=== PATIENT | male | born 1955 | race Caucasian/White ===

== ENCOUNTER 2017-02-26 13:59 | Emergency (ER) | payer BC ==
--- NOTE | 2017-02-26 16:43 | ED Physician Documentation ---
PD HPI CHEST PAIN - Stated complaint Stated Complaint: DIZZY/HIGH BP - Chief complaint Chief Complaint: Cardiac - History obtained from History obtained from: Patient - History of Present Illness Timing - onset: How many hours ago (2), Today Timing - onset during: Light activity (mowing lawn but did not feel strenuous.) Timing - duration: Hours Timing - details: Abrupt onset, Still present (less notable than at onset but still feels funny rhythm in chest.) Quality: Tightness Location: Substernal Improved by: No: Rest Associated symptoms: Feeling faint / dizzy (at onset of it), Palpitations. No: Shortness of air, Nausea, General Weakness Similar symptoms before: Has not had sx before Recently seen: Not recently seen Review of Systems Constitutional: denies: Fever, Chills Nose: denies: Rhinorrhea / runny nose, Congestion Throat: denies: Sore throat Respiratory: denies: Dyspnea, Cough, Wheezing : denies: Dysuria, Frequency Musculoskeletal: denies: Neck pain, Back pain Neurologic: denies: Focal weakness, Numbness, Altered mental status, Headache PD PAST MEDICAL HISTORY - Past Medical History Cardiovascular: Hypertension, Other (no prior atrial fib. has had PVCs or such for years, occasional. ) Respiratory: Emphysema, Pneumonia, Sleep apnea Endocrine/Autoimmune: None GI: Colon polyps, Chronic diarrhea, Other : None HEENT: Chronic vision loss, Chronic sinusitis Psych: None Musculoskeletal: None Derm: Psoriasis - Past Surgical History Past Surgical History: Yes General: Appendectomy, Colonoscopy HEENT: Other Derm: Skin cancer surgery - Present Medications Home Medications: Ambulatory Orders Medication Instructions Recorded Confirmed Lisinopril 20 mg PO DAILY 10/22/12 02/26/17 Metoprolol Tartrate [Lopressor] 50 mg PO DAILY #30 tablet 02/26/17 - Allergies Allergies/Adverse Reactions: Allergies Allergy/AdvReac Type Severity Reaction Status Date / Time Sulfa (Sulfonamide Allergy Rash Verified 02/26/17 14:26 Antibiotics) - Social History Does the pt smoke?: No Smoking Status: Never smoker Does the pt drink ETOH?: Yes ETOH Use: Other (occasional, not heavy use and no recent binge) Does the pt have substance abuse?: No - Immunizations Immunizations are current?: Yes PD ED PE NORMAL - Vitals Vital signs reviewed: Yes - General General: Alert and oriented X 3, No acute distress, Well developed/nourished - HEENT HEENT: Pharynx benign - Neck Neck: Supple, no meningeal sign, No adenopathy, Thyroid normal - Cardiac Cardiac: RRR, No murmur - Respiratory Respiratory: Clear bilaterally - Abdomen Abdomen: Soft, Non tender - Back Back: No CVA TTP - Derm Derm: Normal color, Warm and dry - Extremities Extremities: No deformity, No tenderness to palpate, No edema, No calf tenderness / cord - Neuro Neuro: Alert and oriented X 3, compliance professional 2-12 intact, No motor deficit, No sensory deficit, Normal speech - Psych Psych: Normal mood, Normal affect Results - Vitals Vitals: Vital Signs - 24 hr 02/26/17 02/26/17 02/26/17 14:21 16:58 17:29 Temperature 36.4 C L Heart Rate 75 121 H 100 Respiratory 16 18 18 Rate Blood Pressure 174/89 H 162/93 H 162/93 H O2 Saturation 98 96 98 02/26/17 02/26/17 02/26/17 17:37 17:39 17:44 Temperature Heart Rate 102 H 99 95 Respiratory 16 16 16 Rate Blood Pressure 145/101 H 123/99 H 135/85 H O2 Saturation 98 98 98 02/26/17 02/26/17 02/26/17 17:47 17:51 17:53 Temperature Heart Rate 118 H 104 H 98 Respiratory 16 16 Rate Blood Pressure 140/78 H 138/99 H O2 Saturation 99 99 97 02/26/17 02/26/17 02/26/17 17:59 18:04 18:05 Temperature Heart Rate 110 H 114 H 102 H Respiratory 18 18 18 Rate Blood Pressure 156/100 H 131/88 H 130/97 H O2 Saturation 99 99 98 02/26/17 02/26/17 02/26/17 18:10 18:25 18:30 Temperature Heart Rate 106 H 90 107 H Respiratory 16 16 16 Rate Blood Pressure 142/95 H 141/110 H 131/90 H O2 Saturation 98 99 99 02/26/17 02/26/17 02/26/17 18:45 18:49 18:55 Temperature Heart Rate 104 H 101 H 65 Respiratory 16 16 16 Rate Blood Pressure 131/90 H 132/84 H 116/88 H O2 Saturation 99 97 99 02/26/17 02/26/17 02/26/17 19:00 19:04 19:15 Temperature Heart Rate 64 65 64 Respiratory 14 14 15 Rate Blood Pressure 102/82 H 118/82 H 119/86 H O2 Saturation 97 99 99 02/26/17 19:48 Temperature 37.0 C Heart Rate 64 Respiratory 18 Rate Blood Pressure 123/83 H O2 Saturation 95 Oxygen O2 Source Room air - EKG (time done) 16:40 Rate: Rate (enter#) (121) Rhythm: Atrial fibrillation [place]: Normal QRS: Normal Ischemia: Normal ST segments. No: ST elevation c/w ischemia, ST depression, T wave inversion Compare to prior EKG: Old EKG unavailable 19:22 Rate: Rate (enter#) (63) Rhythm: NSR [place]oy: Normal Intervals: Normal [place] QRS: Normal Ischemia: Normal ST segments. No: ST elevation c/w ischemia, ST depression Compare to prior EKG: Changed from prior EKG - Labs Labs: Laboratory Tests 02/26/17 02/26/17 02/26/17 16:46 16:46 16:46 WBC 11.6 H RBC 4.90 Hgb 15.2 Hct 44.9 MCV 91.6 MCH 31.0 MCHC 33.8 RDW 13.5 Plt Count 229 MPV 9.4 Neut # 8.3 H Lymph # 2.4 [place] # 0.8 Eos # 0.1 Baso # 0.1 Absolute Nucleated RBC 0.00 Nucleated RBC % 0.0 Sodium 135 Potassium 3.7 Chloride 106 Carbon Dioxide 19 L Anion Gap 10.0 BUN 20 Creatinine 1.1 Estimated GFR (MDRD) 67 L Glucose 96 Calcium 9.0 Magnesium Total Bilirubin 0.3 AST 18 ALT 20 Alkaline Phosphatase 46 Troponin I < 0.04 B-Natriuretic Peptide Total Protein 7.3 Albumin 3.9 Globulin 3.4 Albumin/Globulin Ratio 1.1 Lipase 47 02/26/17 02/26/17 16:46 16:46 WBC RBC Hgb Hct MCV MCH MCHC RDW Plt Count MPV Neut # Lymph # [place] # Eos # Baso # Absolute Nucleated RBC Nucleated RBC % Sodium Potassium Chloride Carbon Dioxide Anion Gap BUN Creatinine Estimated GFR (MDRD) Glucose Calcium Magnesium 2.0 Total Bilirubin AST ALT Alkaline Phosphatase Troponin I B-Natriuretic Peptide 42 Total Protein Albumin Globulin Albumin/Globulin Ratio Lipase PD MEDICAL DECISION MAKING - ED course Complexity details: re-evaluated patient (had been looking at OBS idea, and talked about cardioversion as abrupt onset just today, but he prefers not cardioversion if possible. He did convert with Procan, so can do further workup outpatient, such as ECHO, consider stress testing, but he exercises regularly without CP/dyspnea. ), considered differential (heart rate slows with Metoprolol down to about 100. He converted to NSR about 900 mg into his Procainamide. Infusion stopped and he stays in NSR. Feeling better. ), d/w patient Departure - Departure Disposition: Home, Self Care Clinical Impression: Atrial fibrillation, new onset Condition: Stable Record reviewed to determine appropriate education?: Yes Instructions: Atrial Fibrillation Dc Follow-Up: Niles Gu MD [Primary Care Provider] - Prescriptions: Metoprolol Tartrate [Lopressor] 50 mg PO DAILY #30 tablet Comments: Drink lots of fluids. Hold your lisinopril and start metoprolol 50 mg daily instead to help control heart rate as well as blood pressure. Follow-up with Dr. Gu later this week, call for an appointment. They likely will want to schedule an ultrasound of your heart called an echocardiogram to evaluate the structure of it. This can be done outpatient. Return if recurrent symptoms. Discharge Date/Time: 02/26/17 19:57
[2017-02-26 16:56] LABS: BASOPHILS # (AUTO) 0.1 10^3/uL (0.0-0.1); BASOPHILS % (AUTO) 0.6 %; EOSINOPHILS # (AUTO) 0.1 10^3/uL (0.0-0.7); EOSINOPHILS % (AUTO) 1.1 %; HCT - HEMATOCRIT 44.9 % (42.0-52.0); HGB - HEMOGLOBIN 15.2 g/dL (14.0-18.0); LYMPHOCYTES # (AUTO) 2.4 10^3/uL (1.5-3.5); LYMPHOCYTES % (AUTO) 20.4 %; MEAN CORPUSCULAR HGB CONC 33.8 g/dL (32.0-36.0); MEAN CORPUSCULAR VOLUME 91.6 fL (80.0-94.0); MEAN PLATELET VOLUME 9.4 fL (7.4-11.4); MONOCYTES # (AUTO) 0.8 10^3/uL (0.0-1.0); MONOCYTES % (AUTO) 6.7 %; NEUTROPHILS # (AUTO) 8.3 10^3/uL (1.5-6.6); NEUTROPHILS % (AUTO) 71.2 %; RED CELL DISTRIBUTION WIDTH 13.5 % (12.0-15.0); UNCORRECTED WHITE BLOOD COUNT 11.6 x10^3/uL; WHITE BLOOD COUNT 11.6 x10^3/uL (4.8-10.8)
[2017-02-26 17:08] LABS: ALBUMIN/GLOBULIN RATIO 1.1 (1.0-2.2); BILIRUBIN,TOTAL 0.3 mg/dL (0.2-1.0); CREATININE 1.1 mg/dL (0.6-1.2); POTASSIUM 3.7 mmol/L (3.5-5.0); TOTAL PROTEIN 7.3 g/dL (6.7-8.2)
[2017-02-26] MEDS ORDERED: METOPROLOL 5 MG/5 ML VIAL IVP STA ×3 (17:11→18:31)
[2017-02-26] MEDS ORDERED: METOPROLOL 5 MG/5 ML VIAL IVP ONE ×3 (17:33→18:48)
[2017-02-26] MEDS ORDERED: SODIUM CHLORIDE FLUSH 0.9% 10 ML SYRINGE IVP ONE (17:54)
[2017-02-26] MEDS ORDERED: PROCAINAMIDE 1,000 MG/10 ML SYRINGE IV STA (18:28)
[2017-02-26] MEDS ORDERED: PROCAINAMIDE 1,000 MG/10 ML SYRINGE ONE (18:49)
[2017-02-26 19:51] VITALS: BP 123/83
== END 2017-02-26 19:57 | disposition home or self-care (01) ==
LOC: ED 13:59
DX: I48.91 Unspecified atrial fibrillation (principal); I44.4 Left anterior fascicular block; R94.31 Abnormal electrocardiogram [ECG] [EKG]; I10 Essential (primary) hypertension; Z86.010 Personal history of colon polyps
CPT/HCPCS: 36415; 80053; 83690; 83735; 83880; 84484; 85025; 93005; 96374; 96375; 96376; 99284; 99285; J2690

== ENCOUNTER 2017-03-01 12:53 | Outpatient (CLI) | payer BC | END 2017-03-01 12:54 | disposition home or self-care (01) | LOC: DI 12:53 | PROVIDERS: ATTEND Family Medicine | DX: I48.91 Unspecified atrial fibrillation (principal); I51.7 Cardiomegaly | CPT/HCPCS: 93306 ==

== ENCOUNTER 2017-03-27 13:32 | Outpatient (CLI) | payer BC | END 2017-03-27 13:33 | disposition home or self-care (01) | LOC: SC 13:32 | PROVIDERS: ATTEND Internal Medicine Pulmonary Disease | DX: G47.30 Sleep apnea, unspecified (principal); G47.8 Other sleep disorders; R06.83 Snoring | CPT/HCPCS: 99203; 99212 ==

== ENCOUNTER 2017-05-28 11:13 | Emergency (ER) | payer BC ==
[2017-05-28 11:44] LABS: BASOPHILS # (AUTO) 0.1 10^3/uL (0.0-0.1); BASOPHILS % (AUTO) 0.6 %; EOSINOPHILS # (AUTO) 0.2 10^3/uL (0.0-0.7); EOSINOPHILS % (AUTO) 1.7 %; HGB - HEMOGLOBIN 15.5 g/dL (14.0-18.0); LYMPHOCYTES # (AUTO) 1.8 10^3/uL (1.5-3.5); LYMPHOCYTES % (AUTO) 17.9 %; MEAN CORPUSCULAR HEMOGLOBIN 31.4 pg (27.0-31.0); MEAN CORPUSCULAR HGB CONC 34.2 g/dL (32.0-36.0); MEAN CORPUSCULAR VOLUME 91.8 fL (80.0-94.0); MEAN PLATELET VOLUME 9.4 fL (7.4-11.4); MONOCYTES # (AUTO) 0.7 10^3/uL (0.0-1.0); MONOCYTES % (AUTO) 7.1 %; NEUTROPHILS # (AUTO) 7.5 10^3/uL (1.5-6.6); NEUTROPHILS % (AUTO) 72.7 %; PLT - PLATELET COUNT 226 10^3/uL (130-450); RED BLOOD COUNT 4.94 10^6/uL (4.70-6.10); RED CELL DISTRIBUTION WIDTH 13.4 % (12.0-15.0); WHITE BLOOD COUNT 10.3 x10^3/uL (4.8-10.8)
[2017-05-28 11:57] LABS: ALBUMIN/GLOBULIN RATIO 1.2 (1.0-2.2); BILIRUBIN,TOTAL 0.6 mg/dL (0.2-1.0); CALCIUM 9.3 mg/dL (8.5-10.3); CREATININE 1.1 mg/dL (0.6-1.2); TOTAL PROTEIN 7.3 g/dL (6.7-8.2)
[2017-05-28] MEDS ORDERED: SODIUM CHLORIDE 0.9% 1,000 ML IV ONE (12:56)
--- NOTE | 2017-05-28 12:59 | ED Physician Documentation ---
History of Present Illness - Stated complaint Stated Complaint: RAPID HR - Chief complaint Chief Complaint: Cardiac - History obtained from History obtained from: Patient - History of Present Illness Timing: Today Pain level max: 0 Pain level now: 0 Improved by: nothing Worsened by: nothing - Additonal information Additional information: Patient is a 62-year-old male who presents to the emergency department with rapid heart rate today. This is found on his heart rate machine at home. Does have a history of atrial fibrillation. Had not taken his metoprolol yet this morning, but did take it just prior to arrival in the emergency department. He denies any chest pain, shortness of breath. He is also on Adderall for ADD. He took an aspirin prior to arrival today. He feels slightly lightheaded. States decreased fluid intake recently and is changing his diet to try to lose weight. Review of Systems Ten Systems: 10 systems reviewed and negative Constitutional: denies: Fever, Chills Ears: denies: Ear pain Nose: denies: Rhinorrhea / runny nose, Congestion Throat: denies: Sore throat Cardiac: reports: Palpitations. denies: Chest pain / pressure Respiratory: denies: Dyspnea, Cough, Wheezing GI: denies: Abdominal Pain, Nausea, Vomiting, Diarrhea : denies: Dysuria Skin: denies: Rash Musculoskeletal: denies: Neck pain, Back pain Neurologic: denies: Headache PD PAST MEDICAL HISTORY - Past Medical History Cardiovascular: Hypertension, Other Respiratory: Emphysema, Pneumonia, Sleep apnea Endocrine/Autoimmune: None GI: Colon polyps, Chronic diarrhea, Other : None HEENT: Chronic vision loss, Chronic sinusitis Psych: None Musculoskeletal: None Derm: Psoriasis - Past Surgical History Past Surgical History: Yes General: Appendectomy, Colonoscopy HEENT: Other Derm: Skin cancer surgery - Present Medications Home Medications: Ambulatory Orders Medication Instructions Recorded Confirmed Lisinopril 20 mg PO DAILY 10/22/12 05/28/17 Metoprolol Tartrate [Lopressor] 50 mg PO DAILY #30 tablet 02/26/17 05/28/17 Aspirin 325 mg PO DAILY 05/28/17 05/28/17 Dextroamphetamine/Amphetamine 20 mg PO DAILY 05/28/17 05/28/17 [Adderall 20 mg Tablet] - Allergies Allergies/Adverse Reactions: Allergies Allergy/AdvReac Type Severity Reaction Status Date / Time Sulfa (Sulfonamide Allergy Rash Verified 02/26/17 14:26 Antibiotics) - Social History Does the pt smoke?: No Smoking Status: Never smoker Does the pt drink ETOH?: Yes Does the pt have substance abuse?: No - Immunizations Immunizations are current?: Yes - POLST Patient has POLST: No PD ED PE NORMAL - Vitals Vital signs reviewed: Yes - General General: Alert and oriented X 3, No acute distress, Well developed/nourished - HEENT HEENT: PERRL, Moist mucous membranes - Neck Neck: Supple, no meningeal sign - Cardiac Cardiac: Other (irregular) - Respiratory Respiratory: No respiratory distress, Clear bilaterally - Abdomen Abdomen: Soft, Non tender, Non distended - Derm Derm: Warm and dry, No rash - Extremities Extremities: No edema, No calf tenderness / cord - Neuro Neuro: Alert and oriented X 3 - Psych Psych: Normal mood, Normal affect Results - Vitals Vitals: Vital Signs - 24 hr 05/28/17 05/28/17 05/28/17 11:27 13:10 13:36 Temperature 36.5 C Heart Rate 72 98 94 Respiratory 17 12 17 Rate Blood Pressure 149/81 H 104/61 108/76 O2 Saturation 100 98 100 05/28/17 05/28/17 13:38 14:23 Temperature 36.3 C L Heart Rate 92 Respiratory 16 Rate Blood Pressure 104/70 O2 Saturation 97 Oxygen O2 Source Room air - EKG (time done) 1131 Rate: Rate (enter#) (127) Rhythm: Atrial fibrillation (with RVR), Other (PVC) [place]: LAD Ischemia: Non specific changes 1419 Rate: Rate (enter#) (66) Rhythm: NSR, Other (PVC) [place]: LAD, Anterior hemiblock (LAFB) Intervals: Normal [place] QRS: Normal Ischemia: Normal ST segments Computer interpretation: Agree with computer - Labs Labs: Laboratory Tests 05/28/17 05/28/17 05/28/17 11:35 11:35 11:35 WBC 10.3 RBC 4.94 Hgb 15.5 Hct 45.3 MCV 91.8 MCH 31.4 H MCHC 34.2 RDW 13.4 Plt Count 226 MPV 9.4 Neut # 7.5 H Lymph # 1.8 [place] # 0.7 Eos # 0.2 Baso # 0.1 Absolute Nucleated RBC 0.01 Nucleated RBC % 0.1 Sodium 135 Potassium 3.5 Chloride 103 Carbon Dioxide 17 L Anion Gap 15.0 H BUN 25 H Creatinine 1.1 Estimated GFR (MDRD) 67 L Glucose 104 H Calcium 9.3 Phosphorus Magnesium Total Bilirubin 0.6 AST 22 ALT 23 Alkaline Phosphatase 50 Troponin I < 0.04 Total Protein 7.3 Albumin 4.0 Globulin 3.3 Albumin/Globulin Ratio 1.2 Lipase 43 05/28/17 11:35 WBC RBC Hgb Hct MCV MCH MCHC RDW Plt Count MPV Neut # Lymph # [place] # Eos # Baso # Absolute Nucleated RBC Nucleated RBC % Sodium Potassium Chloride Carbon Dioxide Anion Gap BUN Creatinine Estimated GFR (MDRD) Glucose Calcium Phosphorus 4.2 Magnesium 1.9 Total Bilirubin AST ALT Alkaline Phosphatase Troponin I Total Protein Albumin Globulin Albumin/Globulin Ratio Lipase - Rads (name of study) cxr Radiology: Prelim report reviewed, EMP read contemporaneously, See rad report ( Normal single view chest. ) PD MEDICAL DECISION MAKING - ED course Complexity details: reviewed results, re-evaluated patient, considered differential, d/w patient ED course: Patient is a 62-year-old male who presents to the emergency department complaining of rapid heart rate. He is found to be in atrial fibrillation with rapid ventricular response. Given Cardizem, heart rate slowed and then he converted spontaneously to normal sinus rhythm. He also appeared dehydrated clinically, therefore given IV fluids. Feels better. We will have him follow- up with his doctor for further evaluation and care. Patient counseled regarding signs and symptoms for which I believe and urgent re-evaluation would be necessary. Patient with good understanding of and agreement to plan and is comfortable going home at this time This document was made in part using voice recognition software. While efforts are made to proofread this document, sound alike and grammatical errors may occur. Departure - Departure Disposition: 01 Home, Self Care Clinical Impression: Dehydration Atrial fibrillation Qualifiers: Atrial fibrillation type: paroxysmal Qualified Code(s): I48.0 - Paroxysmal atrial fibrillation Condition: Good Instructions: ED Afib Follow-Up: Niles Gu MD [Primary Care Provider] - Within 1 week Comments: Continue your medications at home. Increase your water intake. Return if you worsen. Talk to your doctor about changing from adderall as this may contribute to your afib. Discharge Date/Time: 05/28/17 14:23
[2017-05-28] MEDS ORDERED: diltiaZEM INJ 5 MG/ML VIAL IVP STA (13:05)
--- NOTE | 2017-05-28 13:34 | XRAY Preliminary Report ---
Exam: XR CHEST 1 VIEW X-RAY IMPRESSION: Normal single view chest. [facility] SITE ID: [id number]
[2017-05-28 13:35] LABS: MAGNESIUM 1.9 mg/dL (1.7-2.8); PHOSPHORUS 4.2 mg/dL (2.5-4.6)
[2017-05-28 13:39] VITALS: BP 104/70
--- NOTE | 2017-05-28 14:04 | XRAY Report ---
EXAM: CHEST RADIOGRAPHY EXAM DATE: 05/28/2017 01:24 PM. CLINICAL HISTORY: Atrial fibrillation, RVR. COMPARISON: 04/13/2014. TECHNIQUE: 1 view. FINDINGS: Lungs/Pleura: No focal opacities evident. No pleural effusion. No pneumothorax. Mediastinum: Within exam limitations, the cardiomediastinal contour is normal. Other: None. IMPRESSION: Normal single view chest. [facility] Referring Provider Line: [phone] SITE ID: [id number]
== END 2017-05-28 14:23 | disposition home or self-care (01) ==
LOC: ED 11:13
DX: I48.0 Paroxysmal atrial fibrillation (principal); I49.3 Ventricular premature depolarization; I44.4 Left anterior fascicular block; E86.0 Dehydration; I10 Essential (primary) hypertension; F90.9 Attention-deficit hyperactivity disorder, unspecified type; Z79.82 Long term (current) use of aspirin
CPT/HCPCS: 36415; 71045; 80053; 83690; 83735; 84100; 84484; 85025; 93005; 96361; 96374; 99284; 99285

== ENCOUNTER 2017-06-13 14:19 | Outpatient (CLI) | payer BC | END 2017-06-13 14:20 | disposition home or self-care (01) | LOC: SC 14:19 | PROVIDERS: ATTEND Nurse Practitioner Family | DX: G47.33 Obstructive sleep apnea (adult) (pediatric) (principal) | CPT/HCPCS: 99212; 99214 ==

== ENCOUNTER 2017-07-20 01:39 | Emergency (ER) | payer BC ==
[2017-07-20] MEDS ORDERED: METOPROLOL 5 MG/5 ML VIAL IVP STA (01:48)
[2017-07-20] MEDS ORDERED: SODIUM CHLORIDE 0.9% 1,000 ML IV ONE (02:07)
[2017-07-20 02:14] LABS: MUDS CUTOFF CONCENTRATIONS CUTOFF CONC BELOW:
[2017-07-20 02:27] LABS: AMPHETAMINE SCREEN,URINE NEGATIVE (NEGATIVE); BENZODIAZEPINES SCREEN, URINE NEGATIVE (NEGATIVE); COCAINE SCREEN URINE NEGATIVE (NEGATIVE); METHADONE SCREEN, URINE NEGATIVE (NEGATIVE); METHAMPHETAMINES SCREEN, URINE NEGATIVE (NEGATIVE); OPIATE SCREEN, URINE NEGATIVE (NEGATIVE); OXYCODONE SCREEN, URINE NEGATIVE (NEGATIVE); PROPOXYPHENE SCREEN, URINE NEGATIVE (NEGATIVE); TRICYCLIC ANTIDEPRESSANT,URINE NEGATIVE (NEGATIVE)
[2017-07-20 02:31] LABS: BASOPHILS # (AUTO) 0.2 10^3/uL (0.0-0.1); BASOPHILS % (AUTO) 1.6 %; EOSINOPHILS # (AUTO) 0.5 10^3/uL (0.0-0.7); EOSINOPHILS % (AUTO) 4.6 %; HGB - HEMOGLOBIN 14.2 g/dL (14.0-18.0); LYMPHOCYTES # (AUTO) 2.6 10^3/uL (1.5-3.5); LYMPHOCYTES % (AUTO) 24.5 %; MEAN CORPUSCULAR HEMOGLOBIN 30.4 pg (27.0-31.0); MEAN CORPUSCULAR HGB CONC 33.1 g/dL (32.0-36.0); MEAN CORPUSCULAR VOLUME 91.7 fL (80.0-94.0); MONOCYTES # (AUTO) 0.5 10^3/uL (0.0-1.0); MONOCYTES % (AUTO) 4.5 %; NEUTROPHILS % (AUTO) 64.8 %; PLT - PLATELET COUNT 217 10^3/uL (130-450); RED BLOOD COUNT 4.68 10^6/uL (4.70-6.10); RED CELL DISTRIBUTION WIDTH 13.9 % (12.0-15.0); WHITE BLOOD COUNT 10.8 x10^3/uL (4.8-10.8)
[2017-07-20 02:39] LABS: ALBUMIN 3.7 g/dL (3.2-5.5); ALBUMIN/GLOBULIN RATIO 1.1 (1.0-2.2); ALKALINE PHOSPHATASE 46 IU/L (42-121); ALT ALANINE AMINOTRANSFERASE 19 IU/L (10-60); AST ASPARTATE AMINOTRANSFERASE 23 IU/L (10-42); BILIRUBIN,TOTAL 0.3 mg/dL (0.2-1.0); BUN - BLOOD UREA NITROGEN 22 mg/dL (6-20); CALCIUM 8.8 mg/dL (8.5-10.3); CARBON DIOXIDE - CO2 22 mmol/L (21-32); CHLORIDE 107 mmol/L (101-111); GFR - MDRD 75 (>89); GLUCOSE 116 mg/dL (70-100); LIPASE 19 U/L (22-51); MAGNESIUM 2.3 mg/dL (1.7-2.8); PHOSPHORUS 4.4 mg/dL (2.5-4.6); SODIUM 136 mmol/L (135-145)
--- NOTE | 2017-07-20 02:39 | ED Physician Documentation ---
PD HPI CHEST PAIN - Stated complaint Stated Complaint: POSS AFIB - Chief complaint Chief Complaint: Cardiac - History obtained from History obtained from: Patient - History of Present Illness Timing - onset: Today Timing - onset during: Rest Timing - details: Abrupt onset Quality: No: Pressure, Tightness Associated symptoms: Palpitations Similar symptoms before: Work up / diagnostics, Treatment Recently seen: Not recently seen - Additional information Additional information: Patient is a 62 year old male with a history of a fib on metoprolol who is presenting to the emergency department for palpitations. Patient states that the symptoms started tonight and he felt like he might be in a fib again. Patient states that he might have missed a few doses of his medication and did have black tea with dinner and does partake in cannabis. Review of Systems Constitutional: denies: Fever, Chills Eyes: reports: Reviewed and negative Ears: reports: Reviewed and negative Nose: reports: Reviewed and negative Throat: reports: Reviewed and negative Cardiac: reports: Palpitations. denies: Chest pain / pressure Respiratory: denies: Dyspnea, Cough, Wheezing GI: denies: Nausea, Vomiting : denies: Dysuria, Frequency, Hesitancy Skin: denies: Rash, Lesions Musculoskeletal: reports: Reviewed and negative Neurologic: denies: Near syncope, Syncope Psychiatric: reports: Reviewed and negative Endocrine: reports: Reviewed and negative Immunocompromised: denies: Immunocompromised PD PAST MEDICAL HISTORY - Past Medical History Cardiovascular: Hypertension, Other Respiratory: COPD, Pneumonia, Sleep apnea Endocrine/Autoimmune: None GI: Colon polyps, Chronic diarrhea, Other : None HEENT: Chronic vision loss, Chronic sinusitis Psych: None Musculoskeletal: None Derm: Psoriasis - Past Surgical History Past Surgical History: Yes General: Appendectomy, Colonoscopy HEENT: Other Derm: Skin cancer surgery - Present Medications Home Medications: Ambulatory Orders Medication Instructions Recorded Confirmed Metoprolol Tartrate [Lopressor] 50 mg PO DAILY #30 tablet 02/26/17 07/20/17 Aspirin 325 mg PO DAILY 05/28/17 07/20/17 Dextroamphetamine/Amphetamine 20 mg PO DAILY 05/28/17 07/20/17 [Adderall 20 mg Tablet] - Allergies Allergies/Adverse Reactions: Allergies Allergy/AdvReac Type Severity Reaction Status Date / Time Sulfa (Sulfonamide Allergy Rash Verified 07/20/17 01:50 Antibiotics) - Social History Does the pt smoke?: No Smoking Status: Never smoker Does the pt drink ETOH?: Yes Does the pt have substance abuse?: Yes Substance Use and Type: Marijuana - Immunizations Immunizations are current?: Yes - POLST Patient has POLST: No PD ED PE NORMAL - Vitals Vital signs reviewed: Yes - General General: Alert and oriented X 3 - HEENT HEENT: Atraumatic, PERRL - Neck Neck: Supple, no meningeal sign, No JVD - Respiratory Respiratory: No respiratory distress - Abdomen Abdomen: Soft, Non tender, Non distended - Derm Derm: Normal color, No rash - Extremities Extremities: No deformity, No calf tenderness / cord - Neuro Neuro: Alert and oriented X 3, No motor deficit, No sensory deficit, Normal speech - Psych Psych: Normal mood PD ED PE EXPANDED - General General: Alert, Anxious - HEENT HEENT: Dry mucous membranes - Cardiac Cardiac: Irregularly irregular, Radial strong equal Results - Vitals Vitals: Vital Signs - 24 hr 07/20/17 07/20/17 07/20/17 01:46 02:42 02:43 Temperature 36.6 C Heart Rate 102 H 92 Respiratory 16 16 Rate Blood Pressure 131/70 H 122/64 111/71 O2 Saturation 95 96 Oxygen O2 Source Room air - EKG (time done) 0144 Rate: Rate (enter#) (99) Rhythm: NSR Ischemia: ST depression, Other (multiple pvcs) Compare to prior EKG: Unchanged from prior EKG - Labs Labs: Laboratory Tests 07/20/17 07/20/17 07/20/17 01:50 01:50 01:50 WBC 10.8 RBC 4.68 L Hgb 14.2 Hct 42.9 MCV 91.7 MCH 30.4 MCHC 33.1 RDW 13.9 Plt Count 217 MPV 10.0 Neut # 7.0 H Lymph # 2.6 [place] # 0.5 Eos # 0.5 Baso # 0.2 H Absolute Nucleated RBC 0.00 Nucleated RBC % 0.0 Sodium 136 Potassium 3.4 L Chloride 107 Carbon Dioxide 22 Anion Gap 7.0 BUN 22 H Creatinine 1.0 Estimated GFR (MDRD) 75 L Glucose 116 H Calcium 8.8 Phosphorus 4.4 Magnesium 2.3 Total Bilirubin 0.3 AST 23 ALT 19 Alkaline Phosphatase 46 Troponin I < 0.04 Total Protein 7.0 Albumin 3.7 Globulin 3.3 Albumin/Globulin Ratio 1.1 Lipase 19 L Urine Opiates Screen Ur Oxycodone Screen Urine Methadone Screen Ur Propoxyphene Screen Ur Barbiturates Screen Ur Tricyclics Screen Ur Phencyclidine Scrn Ur Amphetamine Screen U Methamphetamines Scrn U Benzodiazepines Scrn Urine Cocaine Screen U Cannabinoids Screen Ethyl Alcohol < 5.0 07/20/17 01:54 WBC RBC Hgb Hct MCV MCH MCHC RDW Plt Count MPV Neut # Lymph # [place] # Eos # Baso # Absolute Nucleated RBC Nucleated RBC % Sodium Potassium Chloride Carbon Dioxide Anion Gap BUN Creatinine Estimated GFR (MDRD) Glucose Calcium Phosphorus Magnesium Total Bilirubin AST ALT Alkaline Phosphatase Troponin I Total Protein Albumin Globulin Albumin/Globulin Ratio Lipase Urine Opiates Screen NEGATIVE Ur Oxycodone Screen NEGATIVE Urine Methadone Screen NEGATIVE Ur Propoxyphene Screen NEGATIVE Ur Barbiturates Screen NEGATIVE Ur Tricyclics Screen NEGATIVE Ur Phencyclidine Scrn NEGATIVE Ur Amphetamine Screen NEGATIVE U Methamphetamines Scrn NEGATIVE U Benzodiazepines Scrn NEGATIVE Urine Cocaine Screen NEGATIVE U Cannabinoids Screen POSITIVE H Ethyl Alcohol PD MEDICAL DECISION MAKING - ED course Complexity details: reviewed old records, reviewed results, re-evaluated patient , considered differential, d/w patient ED course: Patient was seen and examined at bedside. ekg was performed which showed multiple pvs. IV access was gained, labs were drawn. patient was placed on a monitor. Patient was treated with IV fluids and lopressor 5mg. Patient's pvcs improved dramatically and they were now only occasionally. Patient's other diagnostics were within normal limits aside from borderline potassium which was replaced. Patient was given detailed discharge and follow up instructions. Patient required no further work up and was stable for discharge with outpatient follow up. Departure - Departure Disposition: 01 Home, Self Care Clinical Impression: PVC (premature ventricular contraction) Condition: Good Instructions: ED Palpitations Follow-Up: Niles Gu MD [Primary Care Provider] - Comments: Your symptoms today are being caused by multiple premature ventricular contractions which was likely secondary to missing your medications. It is important that you take your medications as prescribed. If your symptoms return or become more frequent you will need to follow up with your doctor for possible holter monitor and/or medication adjustment. You may return to the emergency department at any time for new, worsening or uncontrollable symptoms.
[2017-07-20] MEDS ORDERED: POTASSIUM CHLORIDE 20 MEQ TABLET PO STA (02:40)
[2017-07-20 03:30] VITALS: BP 134/76
== END 2017-07-20 03:30 | disposition home or self-care (01) ==
LOC: ED 01:39
DX: I49.3 Ventricular premature depolarization (principal); Z79.899 Other long term (current) drug therapy; I10 Essential (primary) hypertension
CPT/HCPCS: 36415; 80053; 80306; 80320; 83690; 83735; 84100; 84443; 84484; 85025; 93005; 96361; 96374; 99284; A9270

== ENCOUNTER 2017-08-30 11:15 | Outpatient (CLI) | payer BC | END 2017-08-30 11:16 | disposition home or self-care (01) | LOC: SC 11:15 | PROVIDERS: ATTEND Nurse Practitioner Family | DX: G47.33 Obstructive sleep apnea (adult) (pediatric) (principal) | CPT/HCPCS: 99212; 99215 ==

== ENCOUNTER 2017-09-13 10:13 | Emergency (ER) | payer BC ==
[2017-09-13] MEDS ORDERED: IOPAMIDOL-300 100 ML VIAL IVP ONE ×2 (10:14)
--- NOTE | 2017-09-13 10:30 | ED Physician Documentation ---
PD HPI FOCAL NEURO - Stated complaint Stated Complaint: LT SIDE FACIAL NUMBNESS - Chief complaint Chief Complaint: Heent - History obtained from History obtained from: Patient - History of Present Illness Timing - onset: Today (awoke with it this morning.) Timing - duration: Hours (at least 3 hours, up to about 12 hours (when he went to bed last night).) Timing - details: Abrupt onset Time of symptom onset unknown: Time of onset unknown Severity of deficit: Moderate Weakness: Face, Left. No: Arm, Leg Numbness: No: Face, Arm, Leg Associated symptoms: No: Headache, Nausea / vomiting, Fall, Head injury Review of Systems Constitutional: denies: Fever, Chills, Myalgias Eyes: denies: Loss of vision, Decreased vision Ears: denies: Ear pain, Drainage/discharge Nose: denies: Rhinorrhea / runny nose, Congestion Throat: denies: Sore throat Cardiac: denies: Chest pain / pressure, Palpitations Respiratory: denies: Dyspnea, Cough GI: denies: Abdominal Pain, Nausea, Vomiting, Diarrhea Skin: denies: Rash, Lesions Musculoskeletal: denies: Neck pain, Back pain Neurologic: denies: Altered mental status, Headache, Head injury PD PAST MEDICAL HISTORY - Past Medical History Past Medical History: Yes Cardiovascular: Hypertension, Other Respiratory: COPD, Pneumonia, Sleep apnea Endocrine/Autoimmune: None GI: Colon polyps, Chronic diarrhea, Other : None HEENT: Chronic vision loss, Chronic sinusitis Psych: None Musculoskeletal: None Derm: Psoriasis - Past Surgical History Past Surgical History: Yes General: Appendectomy, Colonoscopy HEENT: Other Derm: Skin cancer surgery - Present Medications Home Medications: Ambulatory Orders Medication Instructions Recorded Confirmed Acyclovir 400 mg PO 5XD #25 tablet 09/13/17 Dexamethasone [Decadron] 4 mg PO DAILY #5 tablet 09/13/17 Metoprolol Tartrate [Lopressor] 50 mg PO BID 09/13/17 09/13/17 Rivaroxaban [Xarelto] 09/13/17 Tamsulosin HCl [Flomax] 09/13/17 - Allergies Allergies/Adverse Reactions: Allergies Allergy/AdvReac Type Severity Reaction Status Date / Time Sulfa (Sulfonamide Allergy Rash Verified 07/20/17 01:50 Antibiotics) - Social History Does the pt smoke?: No Smoking Status: Never smoker Does the pt drink ETOH?: Yes Does the pt have substance abuse?: Yes - Immunizations Immunizations are current?: Yes - POLST Patient has POLST: No PD ED PE NORMAL - Vitals Vital signs reviewed: Yes - General General: Alert and oriented X 3, No acute distress, Well developed/nourished - HEENT HEENT: Ears normal, Pharynx benign, Other (obvious weakness/droop of left face, unable to puff cheeks symmetrically. Unable to fully close his left eye. Forehead seems to have symmetric movement; lower part of face is affected. ) - Neck Neck: Supple, no meningeal sign, No adenopathy, No JVD, No bruit - Cardiac Cardiac: RRR, No murmur - Respiratory Respiratory: No respiratory distress, Clear bilaterally - Abdomen Abdomen: Soft, Non tender - Back Back: No CVA TTP - Derm Derm: Normal color, Warm and dry, No rash - Extremities Extremities: No tenderness to palpate, Normal ROM s pain, No edema, No calf tenderness / cord - Neuro Neuro: Alert and oriented X 3, No sensory deficit, Normal speech, Other (left face with moderate weakness.). No: philatelic consultant 2-12 intact (only left face weakness noted; rest is normal. ) Eye Opening: Spontaneous Motor: Obeys Commands Verbal: Oriented GCS Score: 15 NIHSS - Level of Consciousness Level of consciousness: (0) Alert, Keenly responsive LOC Questions: (0) Answers both Q's correct LOC Commands: (0) Performs both correctly - Gaze Best Gaze: (0) Normal - Visual Visual: (0) No loss - Facial Palsy Facial Palsy: (2) Partial paralysis - Motor Arms (both separate) Motor Arm (right): (0) No drift Motor Arm (left): (0) No drift - Motor Legs (both separate) Motor Leg (right): (0) No drift Motor Leg (left): (0) No drift - Limb Ataxia Limb Ataxia: (0) Absent - Sensory Sensory: (0) Normal - Best Language Best Language: (0) No aphasia - Dysarthria Dysarthria: (0) Normal - Extinction and Inattention (formally neg Extinction and inattention: (0) No abnormality - Total Score/Results Total Score/Result: 2 Results - Vitals Vitals: Vital Signs - 24 hr 09/13/17 09/13/17 09/13/17 10:22 12:40 14:10 Temperature 36.6 C 36.5 C 36.4 C L Heart Rate 80 53 L 54 L Respiratory 18 14 18 Rate Blood Pressure 145/87 H 121/79 135/81 H O2 Saturation 98 96 97 Oxygen O2 Source Room air - Labs Labs: Laboratory Tests 09/13/17 09/13/17 10:56 10:56 WBC 9.8 RBC 4.77 Hgb 14.8 Hct 43.6 MCV 91.4 MCH 31.0 MCHC 34.0 RDW 13.4 Plt Count 214 MPV 8.9 Neut # 7.1 H Lymph # 1.7 [place] # 0.6 Eos # 0.3 Baso # 0.1 Absolute Nucleated RBC 0.01 Nucleated RBC % 0.1 Manual Slide Review Indicated Platelet Morphology RARE GIANT PLATELETS Sodium 138 Potassium 3.8 Chloride 107 Carbon Dioxide 23 Anion Gap 8.0 BUN 20 Creatinine 1.0 Estimated GFR (MDRD) 75 L Glucose 116 H Calcium 8.9 Magnesium 2.1 Total Bilirubin 0.5 AST 26 ALT 24 Alkaline Phosphatase 43 Total Protein 7.1 Albumin 3.7 Globulin 3.4 Albumin/Globulin Ratio 1.1 Lipase 131 H - Rads (name of study) head CT and angio Radiology: Prelim report reviewed (no acute structural problem and angio part without any arreas of flow limitation. ), EMP read contemporaneously PD MEDICAL DECISION MAKING - ED course Complexity details: reviewed results, re-evaluated patient, considered differential (initially with thought of central cause as the forehead was spared. On recheck from CT, re-exam of the patient showing some weakness of the left forehead and some assymetry of forehead wrinkles with eyebrow lifting. This now more c/w peripheral Adkins Palsy. 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 Use Decadron steroid anti-inflammatory daily for 5 more days. Sometimes this is from a viral infection so take acyclovir for 5 days as well as directed. The degree of weakness on the side of the face may progress over a couple more days and usually hits the peak of it and then tapers down over anywhere from a week to 6 weeks. Follow-up with your primary care next week however for recheck, call for an appointment. Be careful the left eye does not dry out because it does not close properly and use some eye ointment such as refresh [id number] or [place] prescription frequently to keep the dryness from occurring. Discharge Date/Time: 09/13/17 14:17
[2017-09-13] MEDS ORDERED: SODIUM CHLORIDE 0.9% 1,000 ML IV ONE (10:41)
[2017-09-13 11:06] LABS: BASOPHILS # (AUTO) 0.1 10^3/uL (0.0-0.1); BASOPHILS % (AUTO) 0.7 %; EOSINOPHILS # (AUTO) 0.3 10^3/uL (0.0-0.7); EOSINOPHILS % (AUTO) 2.9 %; HGB - HEMOGLOBIN 14.8 g/dL (14.0-18.0); LYMPHOCYTES # (AUTO) 1.7 10^3/uL (1.5-3.5); LYMPHOCYTES % (AUTO) 17.8 %; MEAN CORPUSCULAR VOLUME 91.4 fL (80.0-94.0); MEAN PLATELET VOLUME 8.9 fL (7.4-11.4); MONOCYTES # (AUTO) 0.6 10^3/uL (0.0-1.0); MONOCYTES % (AUTO) 5.9 %; NEUTROPHILS # (AUTO) 7.1 10^3/uL (1.5-6.6); NEUTROPHILS % (AUTO) 72.7 %; PLT - PLATELET COUNT 214 10^3/uL (130-450); RED BLOOD COUNT 4.77 10^6/uL (4.70-6.10); RED CELL DISTRIBUTION WIDTH 13.4 % (12.0-15.0); WHITE BLOOD COUNT 9.8 x10^3/uL (4.8-10.8)
[2017-09-13 11:30] LABS: ALBUMIN 3.7 g/dL (3.2-5.5); ALBUMIN/GLOBULIN RATIO 1.1 (1.0-2.2); BILIRUBIN,TOTAL 0.5 mg/dL (0.2-1.0); CALCIUM 8.9 mg/dL (8.5-10.3); MAGNESIUM 2.1 mg/dL (1.7-2.8); TOTAL PROTEIN 7.1 g/dL (6.7-8.2)
[2017-09-13 11:31] LABS: PLATELET MORPHOLOGY RARE GIANT PLATELETS (NORMAL)
[2017-09-13] MEDS ORDERED: IOPAMIDOL-300 100 ML VIAL ONE ×2 (11:32→12:22)
--- NOTE | 2017-09-13 12:13 | CT Report ---
EXAM: CT HEAD EXAM DATE: 09/13/2017 11:55 AM. CLINICAL HISTORY: Facial weakness this morning. COMPARISON: None. TECHNIQUE: Multiaxial CT images were obtained from the foramen magnum to the vertex. Reformats: Coron al. IV contrast: None. In accordance with CT protocol optimization, one or more of the following dose reduction techniques w ere utilized for this exam: automated exposure control, adjustment of mA and/or KV based on patient s ize, or use of iterative reconstructive technique. FINDINGS: Parenchyma: No midline shift. No intraparenchymal hemorrhage. No mass. There is mild periventricular white matter hypodensity, nonspecific but suggesting chronic microvascular ischemic change. No convin cing evidence of acute cortical stroke. Extraaxial Spaces: Normal for age. No subdural or epidural collections identified. Ventricles: Normal in size and position accounting for mild generalized cerebral volume loss. Sinuses and Orbits: Imaged paranasal sinuses, orbits, and mastoids show no significant abnormality. Bones: No evidence of fracture or calvarial defect. Other: None. IMPRESSION: 1. No definite acute intracranial abnormality. 2. Probable chronic microvascular ischemic changes. RADIA The call report notification system was initiated by Dr. Damon Ramos at 12:08 hrs on 09/13/17. The above findings were discussed with Akin Costello by Dr. Damon Ramos at 12:11 hrs on 09/13/17. Referring Provider Line: [phone] SITE ID: [id number]
--- NOTE | 2017-09-13 13:16 | CT Preliminary Report ---
Exam: CT HEAD ANGIO Impression: CT angiogram head 1. There is fairly extensive calcified atherosclerotic plaque in the carotid siphons bilaterally. The re is associated ICA narrowing, most prominent in the proximal supraclinoid segments where stenosis a ppears to represent 50 or close to 50% narrowing bilaterally. The left ICA stenosis appears be more s evere than the right. 2. Otherwise unremarkable intracranial CT angiogram. No evidence of occlusion or high-grade stenosis affecting main branches of the anterior or posterior circulations. Postcontrast head CT No enhancing space-occupying mass lesion is demonstrated. SITE ID: [id number]
--- NOTE | 2017-09-13 13:48 | CT Report ---
CT ANGIOGRAM HEAD AND POSTCONTRAST HEAD CT INDICATION: 62-year-old male with left-sided numbness and left facial droop this a. M. TECHNIQUE: CT Angiogram Head: 80 mL of Isovue-300 contrast were injected at a rapid rate through a large bore antecubital intraveno us catheter. The head was scanned helically during arterial phase. Data was reconstructed into 0.5 mm axial images. In addition, MIP reconstructions have been generated in multiple projections to allow better assessment of the intracranial arteries. Of note, this examination was performed twice. On initial attempt degree of intra-arterial contrast a t the skull base is very poor. The amount of intraluminal contrast is significantly better on the sec ond attempt (labeled series #4). Postcontrast Head CT: Sequential 5 mm axial images were obtained through the brain following the CT angiograms COMPARISON: None. FINDINGS: CT Angiogram Head: Anterior Circulation: There is calcified atherosclerotic plaque scattered throughout the carotid siph ons bilaterally with associated, multifocal ICA narrowing. There appears to be circumferential or ian r circumferential plaque in the proximal supraclinoid ICAs suggesting 50% or close to 50% narrowing. No high-grade ICA stenosis is identified. The A1 segment of the left anterior cerebral artery is mild ly hypoplastic with dominant right A1 segment. There probably is a small anterior communicating arter y. There appears to be good filling of the A2 and distal MAYLIN branches. No obvious MAYLIN branch occlusio n is identified. The middle cerebral arteries are unremarkable. No aneurysm is demonstrated, and ther e is no evidence of occlusion or hemodynamically significant stenosis affecting main branches of eith er middle cerebral artery. There appear to be a similar number of opacified M3 and M4 branches bilate rally. Posterior Circulation: The vertebral arteries and PICAs appear patent. No aneurysm at either PICA origin. The basilar artery , superior cerebellar arteries, and posterior cerebral arteries appear patent without significant foc al stenosis. There is a tiny right posterior communicating artery. No definite left posterior communi cator is seen. No aneurysms are demonstrated arising from the basilar artery trunk or apex. Postcontrast Head CT: No enhancing space-occupying mass lesion is demonstrated. There appears to be normal intravascular co ntrast enhancement in the dural venous sinuses and deep venous structures. IMPRESSION: CT Angiogram Head: 1. There is fairly extensive calcified atherosclerotic plaque in the carotid siphons bilaterally. The re is associated ICA narrowing, most prominent in the proximal supraclinoid segments where stenosis a ppears to represent 50% or close to 50% narrowing bilaterally. The left ICA stenosis appears to be mo re severe than the right. 2. Otherwise unremarkable intracranial CT angiogram. No evidence of occlusion or high-grade stenosis affecting main branches of the anterior or posterior circulations. Postcontrast head CT: No enhancing space-occupying mass lesion is demonstrated. Referring Provider Line: [phone] SITE ID: [id number]
[2017-09-13] MEDS ORDERED: DEXAMETHASONE 10 MG/ML VIAL PO STA (13:55)
[2017-09-13] MEDS ORDERED: ACYCLOVIR 200 MG CAPSULE PO STA (13:55)
[2017-09-13 14:11] VITALS: BP 135/81
[2017-09-13] MEDS: IOPAMIDOL-300 100 ML VIAL IVP ONE ×2 (15:54→15:55)
== END 2017-09-13 14:17 | disposition home or self-care (01) ==
LOC: ED 10:13
DX: G51.0 Bell's palsy (principal); I10 Essential (primary) hypertension; J44.9 Chronic obstructive pulmonary disease, unspecified; Z86.010 Personal history of colon polyps
CPT/HCPCS: 36415; 70450; 70496; 80053; 83690; 83735; 85025; 93005; 96360; 96361; 99283; 99284; A9270; Q9967

== ENCOUNTER 2017-10-30 13:31 | Outpatient (CLI) | payer BC | END 2017-10-30 13:32 | disposition home or self-care (01) | LOC: LAB 13:31 | PROVIDERS: ATTEND Internal Medicine Clinical Cardiac Electrophysiology | DX: I48.0 Paroxysmal atrial fibrillation (principal) | CPT/HCPCS: 36415; 80048 ==

== ENCOUNTER 2017-11-06 22:36 | Emergency (ER) | payer BC ==
--- NOTE | 2017-11-06 22:51 | ED Physician Documentation ---
PD HPI CHEST PAIN - Stated complaint Stated Complaint: SOA/SWEATING - Chief complaint Chief Complaint: Cardiac - History obtained from History obtained from: Patient, Family - History of Present Illness Timing - onset: Today Timing - onset during: Rest Timing - details: Gradual onset, Intermittant Quality: Pressure Location: Substernal, Left chest Associated symptoms: Shortness of air, Palpitations Similar symptoms before: Work up / diagnostics, Treatment Recently seen: Surgery - Additional information Additional information: Patient is a 62 year old male presenting to the emergency department for sob and diaphoresis. patient had an ablation for Afib done yesterday. patient states about three and a half hours ago he developed shortness of breath and sweating while watering his garden. patient states that the symptoms have improved slightly since they started. Review of Systems Constitutional: denies: Fever, Chills Cardiac: reports: Chest pain / pressure Respiratory: reports: Dyspnea. denies: Cough, Wheezing PD PAST MEDICAL HISTORY - Past Medical History Past Medical History: Yes Cardiovascular: Hypertension, Atrial fibrillation, Other Respiratory: COPD, Pneumonia, Sleep apnea Endocrine/Autoimmune: None GI: Colon polyps, Chronic diarrhea, Other : None HEENT: Chronic vision loss, Chronic sinusitis Psych: None Musculoskeletal: None Derm: Psoriasis - Past Surgical History Past Surgical History: Yes General: Appendectomy, Colonoscopy Cardiovascular: Other HEENT: Other Derm: Skin cancer surgery - Present Medications Home Medications: Ambulatory Orders Medication Instructions Recorded Confirmed Acyclovir 400 mg PO 5XD #25 tablet 09/13/17 Dexamethasone [Decadron] 4 mg PO DAILY #5 tablet 09/13/17 Metoprolol Tartrate [Lopressor] 50 mg PO BID 09/13/17 09/13/17 Rivaroxaban [Xarelto] 09/13/17 Tamsulosin HCl [Flomax] 09/13/17 - Allergies Allergies/Adverse Reactions: Allergies Allergy/AdvReac Type Severity Reaction Status Date / Time Sulfa (Sulfonamide Allergy Rash Verified 07/20/17 01:50 Antibiotics) - Social History Does the pt smoke?: No Smoking Status: Never smoker Does the pt drink ETOH?: Yes Does the pt have substance abuse?: Yes - Immunizations Immunizations are current?: Yes - POLST Patient has POLST: No PD ED PE NORMAL - Vitals Vital signs reviewed: Yes - General General: Alert and oriented X 3 - HEENT HEENT: Atraumatic - Neck Neck: No JVD - Abdomen Abdomen: Soft - Derm Derm: Normal color - Extremities Extremities: No deformity, No edema - Neuro Neuro: Alert and oriented X 3 PD ED PE EXPANDED - HEENT HEENT: Dry mucous membranes - Cardiac Cardiac: Abnormal Rate - Respiratory Respiratory: Accessory mm use - Extremities Extremities: Right thigh (no active bleeding from puncture site), Left thigh ( no active bleeding from puncture site) Results - Vitals Vitals: Vital Signs - 24 hr 11/06/17 11/06/17 11/06/17 22:40 23:04 23:35 Temperature 36.8 C Heart Rate 72 63 72 Respiratory 31 H 15 21 Rate Blood Pressure 134/78 H 112/56 L 109/62 O2 Saturation 93 96 97 Oxygen O2 Source Room air - EKG (time done) 2243 Rate: Rate (enter#) (67) Rhythm: Other (sinus) [place]: LAD Ischemia: Other (ventricular trigmeniny ) - Labs Labs: Laboratory Tests 11/06/17 11/06/17 11/06/17 22:44 22:44 22:44 WBC 11.9 H RBC 4.24 L Hgb 13.4 L Hct 40.0 L MCV 94.3 H MCH 31.5 H MCHC 33.4 RDW 13.3 Plt Count 207 MPV 9.1 Neut # (Auto) 8.0 H Lymph # (Auto) 2.9 [place] # (Auto) 0.8 Eos # (Auto) 0.1 Baso # (Auto) 0.1 Absolute Nucleated RBC 0.00 Nucleated RBC % 0.0 PT 14.8 H INR 1.3 H APTT 31.9 Sodium 136 Potassium 4.1 Chloride 108 Carbon Dioxide 19 L Anion Gap 9.0 BUN 21 H Creatinine 1.0 Estimated GFR (MDRD) 75 L Glucose 111 H Calcium 8.7 Phosphorus 3.3 Magnesium 2.0 Total Bilirubin 0.5 AST 83 H ALT 87 H Alkaline Phosphatase 44 Troponin I B-Natriuretic Peptide Total Protein 6.5 L Albumin 3.3 Globulin 3.2 Albumin/Globulin Ratio 1.0 Lipase 32 11/06/17 11/06/17 22:44 22:44 WBC RBC Hgb Hct MCV MCH MCHC RDW Plt Count MPV Neut # (Auto) Lymph # (Auto) [place] # (Auto) Eos # (Auto) Baso # (Auto) Absolute Nucleated RBC Nucleated RBC % PT INR APTT Sodium Potassium Chloride Carbon Dioxide Anion Gap BUN Creatinine Estimated GFR (MDRD) Glucose Calcium Phosphorus Magnesium Total Bilirubin AST ALT Alkaline Phosphatase Troponin I 3.26 H* B-Natriuretic Peptide 158 H Total Protein Albumin Globulin Albumin/Globulin Ratio Lipase - Rads (name of study) chest x-ray Radiology: Final report received (mildly enlarged cardiac silhouette) PD MEDICAL DECISION MAKING - ED course Complexity details: reviewed old records, reviewed results, re-evaluated patient , considered differential, d/w patient, d/w environmental remediation consultant ED course: Patient was seen and examined at bedside. ekg was performed and was ventricular bigeminy. Patient was placed on a monitor. IV access was gained and labs were drawn. chest x-ray was performed and the the cardiac silhouette was slightly larger. patient's troponin was elevated but electorlytes were within normal limits. [facility] and the case was discussed with DR. Farmer who accepted the patient in transfer. Patient was transferred in stable condition. - Sepsis Event Vital Signs: Vital Signs - 24 hr 11/06/17 11/06/17 11/06/17 22:40 23:04 23:35 Temperature 36.8 C Heart Rate 72 63 72 Respiratory 31 H 15 21 Rate Blood Pressure 134/78 H 112/56 L 109/62 O2 Saturation 93 96 97 Oxygen O2 Source Room air Departure - Departure Disposition: 02 Transfer Acute Care Hosp Clinical Impression: Elevated troponin, Ventricular trigeminy, S/P ablation of atrial fibrillation Condition: Stable
[2017-11-06 22:55] LABS: BASOPHILS # (AUTO) 0.1 10^3/uL (0.0-0.1); BASOPHILS % (AUTO) 0.7 %; EOSINOPHILS # (AUTO) 0.1 10^3/uL (0.0-0.7); EOSINOPHILS % (AUTO) 1.2 %; HGB - HEMOGLOBIN 13.4 g/dL (14.0-18.0); LYMPHOCYTES # (AUTO) 2.9 10^3/uL (1.5-3.5); LYMPHOCYTES % (AUTO) 24.8 %; MEAN CORPUSCULAR HEMOGLOBIN 31.5 pg (27.0-31.0); MEAN CORPUSCULAR HGB CONC 33.4 g/dL (32.0-36.0); MEAN CORPUSCULAR VOLUME 94.3 fL (80.0-94.0); MEAN PLATELET VOLUME 9.1 fL (7.4-11.4); MONOCYTES # (AUTO) 0.8 10^3/uL (0.0-1.0); MONOCYTES % (AUTO) 6.4 %; NEUTROPHILS % (AUTO) 66.9 %; PLT - PLATELET COUNT 207 10^3/uL (130-450); RED BLOOD COUNT 4.24 10^6/uL (4.70-6.10); RED CELL DISTRIBUTION WIDTH 13.3 % (12.0-15.0); WHITE BLOOD COUNT 11.9 x10^3/uL (4.8-10.8)
[2017-11-06 23:03] LABS: INR 1.3 (0.8-1.2); PT - PROTHROMBIN TIME 14.8 secs (9.9-12.6)
[2017-11-06 23:08] LABS: ALBUMIN 3.3 g/dL (3.2-5.5); BILIRUBIN,TOTAL 0.5 mg/dL (0.2-1.0); CALCIUM 8.7 mg/dL (8.5-10.3); PHOSPHORUS 3.3 mg/dL (2.5-4.6); TOTAL PROTEIN 6.5 g/dL (6.7-8.2)
--- NOTE | 2017-11-06 23:18 | XRAY Report ---
Procedure Date: 11/06/2017 Accession Number: [id number] / [id number] Procedure: XR - Chest 1 View X-Ray CPT Code: 06787 FULL RESULT: EXAM: CHEST RADIOGRAPHY EXAM DATE: 11/06/2017 10:53 PM. CLINICAL HISTORY: Shortness of breath, post ablation. COMPARISON: 05/28/2017. TECHNIQUE: 1 view. FINDINGS: Lungs/Pleura: Large lung volumes. Pulmonary vascularity upper normal. No alveolar consolidation or pleural effusion seen. No pneumothorax. Mediastinum: Within exam limitations, heart size is upper normal. Other: None. IMPRESSION: 1. Borderline heart size and pulmonary vascularity. RADIA
[2017-11-06 23:36] VITALS: BP 109/62
== END 2017-11-07 00:18 | disposition short-term general hospital (02) ==
LOC: ED 22:36
DX: R00.8 Other abnormalities of heart beat (principal); I48.91 Unspecified atrial fibrillation; I10 Essential (primary) hypertension; Z79.01 Long term (current) use of anticoagulants
CPT/HCPCS: 36415; 71045; 80053; 80320; 83690; 83735; 83880; 84100; 84484; 85025; 85610; 85730; 93005; 99284

== ENCOUNTER 2017-11-07 00:21 | Outpatient (CLI) | payer BC | END 2017-11-07 00:22 | disposition short-term general hospital (02) | LOC: EMS 00:21 | PROVIDERS: ATTEND Surgery | DX: R00.8 Other abnormalities of heart beat (principal); R79.89 Other specified abnormal findings of blood chemistry | CPT/HCPCS: A0425; A0426 ==

== ENCOUNTER 2018-07-24 10:35 | Outpatient (CLI) | payer BC, MEDICARE ==
[2018-07-24 12:23] LABS: BASOPHILS % (AUTO) 0.6 %; EOSINOPHILS # (AUTO) 0.3 10^3/uL (0.0-0.7); EOSINOPHILS % (AUTO) 4.3 %; HGB - HEMOGLOBIN 14.5 g/dL (14.0-18.0); LYMPHOCYTES # (AUTO) 1.8 10^3/uL (1.5-3.5); LYMPHOCYTES % (AUTO) 23.9 %; MEAN CORPUSCULAR HEMOGLOBIN 31.3 pg (27.0-31.0); MEAN CORPUSCULAR HGB CONC 33.9 g/dL (32.0-36.0); MEAN CORPUSCULAR VOLUME 92.4 fL (80.0-94.0); MEAN PLATELET VOLUME 8.8 fL (7.4-11.4); MONOCYTES # (AUTO) 0.5 10^3/uL (0.0-1.0); MONOCYTES % (AUTO) 6.2 %; NEUTROPHILS # (AUTO) 4.8 10^3/uL (1.5-6.6); PLT - PLATELET COUNT 235 10^3/uL (130-450); RED BLOOD COUNT 4.63 10^6/uL (4.70-6.10); RED CELL DISTRIBUTION WIDTH 13.7 % (12.0-15.0); WHITE BLOOD COUNT 7.4 x10^3/uL (4.8-10.8)
[2018-07-24 13:53] LABS: ALBUMIN 3.5 g/dL (3.2-5.5); ALKALINE PHOSPHATASE 47 IU/L (42-121); ALT ALANINE AMINOTRANSFERASE 16 IU/L (10-60); AST ASPARTATE AMINOTRANSFERASE 20 IU/L (10-42); BILIRUBIN,TOTAL 0.3 mg/dL (0.2-1.0); BUN - BLOOD UREA NITROGEN 17 mg/dL (6-20); CALCIUM 8.8 mg/dL (8.5-10.3); CARBON DIOXIDE - CO2 23 mmol/L (21-32); CHLORIDE 108 mmol/L (101-111); CHOL/HDL RATIO 4.9 (<5.0); CHOLESTEROL 180 mg/dL; GFR - MDRD 75 (>89); GLUCOSE 100 mg/dL (70-100); HDL CHOLESTEROL 37 mg/dL; LDL CHOLESTEROL,CALCULATED 129 mg/dL; LDL/HDL RATIO 3.5 (<3.6); SODIUM 139 mmol/L (135-145); VLDL CHOLESTEROL 14 mg/dL
== END 2018-07-24 23:59 | disposition home or self-care (01) ==
LOC: LAB.WCP 10:35
PROVIDERS: ATTEND Family Medicine
DX: I25.10 Atherosclerotic heart disease of native coronary artery without angina pectoris (principal); Z12.5 Encounter for screening for malignant neoplasm of prostate
CPT/HCPCS: 36415; 80053; 80061; 85025; G0103; 83721; 84153

== ENCOUNTER 2020-03-04 14:00 | Outpatient (CLI) | payer MEDICARE | END 2020-03-04 23:59 | disposition home or self-care (01) | LOC: LAB.R 14:00 | PROVIDERS: ATTEND Family Medicine | DX: J32.8 Other chronic sinusitis (principal); Z20.828 Contact with and (suspected) exposure to other viral communicable diseases ==

== ENCOUNTER 2020-06-15 12:08 | Outpatient (CLI) | payer MEDICARE ==
[2020-06-15] MEDS ORDERED: GADOBUTROL 15 MMOL/15 ML VIAL ONE (12:41)
[2020-06-19] MEDS ORDERED: GADOBUTROL 15 MMOL/15 ML VIAL IVP ONE (18:47)
== END 2020-06-15 12:09 | disposition home or self-care (01) ==
LOC: LAB 12:08 → DI 12:09
PROVIDERS: ATTEND Otolaryngology
DX: H91.22 Sudden idiopathic hearing loss, left ear (principal)

== ENCOUNTER 2020-06-15 12:18 | Outpatient (CLI) | payer MEDICARE ==
[2020-06-15 13:14] LABS: CREATININE 1.3 mg/dL (0.6-1.2)
== END 2020-06-15 12:19 | disposition home or self-care (01) ==
LOC: LAB 12:18
PROVIDERS: ATTEND Otolaryngology
DX: H91.22 Sudden idiopathic hearing loss, left ear (principal)
CPT/HCPCS: 36415; 82565

== ENCOUNTER 2020-06-15 12:18 | Outpatient (CLI) | payer MEDICARE ==
--- NOTE | 2020-06-15 16:50 | XRAY Report ---
PROCEDURE: Knee 3 View LT INDICATIONS: LEFT KNEE PAIN TECHNIQUE: 3 views of the left knee(s) were acquired. COMPARISON: None. FINDINGS: Bones: No fractures or dislocations. No suspicious bony lesions. Mild tricompartmental periarticul ar osteophyte formation. Soft tissues: No joint effusion. No suspicious soft tissue calcifications. IMPRESSION: Osteoarthritis. No acute fracture. No osseous lesion. If symptoms and/or clinical suspic ion for pathology continue, further assessment with repeat plain films, or advanced imaging (e.g., CT , MRI, or bone scan) is recommended for further assessment. Reviewed by: Mayank Thomas MD on 06/15/2020 4:49 PM PST Approved by: Mayank Thomas MD on 06/15/2020 4:49 PM PST Station ID: [id number]
== END 2020-06-15 12:19 | disposition home or self-care (01) ==
LOC: DI 12:18
PROVIDERS: ATTEND Family Medicine
DX: M17.12 Unilateral primary osteoarthritis, left knee (principal)

== ENCOUNTER 2020-06-19 16:55 | Outpatient (CLI) | payer MEDICARE ==
[2020-06-19] MEDS ORDERED: GADOBUTROL 15 MMOL/15 ML VIAL ONE (17:44)
--- NOTE | 2020-06-22 08:32 | MRI Report ---
PROCEDURE: IACS W/WO INDICATIONS: SUDDEN HEARING LOSS LEFT CONTRAST: IV CONTRAST: Gadavist ml: 11 TECHNIQUE: Noncontrast sagittal T1 spin echo, axial FLAIR, axial gradient echo, axial diffusion and ADC through the brain. Axial thin-slice 3D CISS, coronal balanced GE, axial T1 spin echo with fat saturation thr ough the internal auditory canals. After the administration of contrast, thin slice axial and villafuerte l T1 spin echo with fat saturation through the internal auditory canals, and axial T1 spin echo with fat saturation through the brain. COMPARISON: None. FINDINGS: Image quality: Excellent. Cerebellopontine angles: No cerebellopontine angle masses. Inner ear structures appear normally for med. No suspicious enhancement in the internal auditory canal or along the course of the 7th cranial nerve. CSF spaces: Ventricles are normal in size and shape. No extra-axial fluid collections. Basal ciste rns are patent. Brain: Mild global cerebral volume loss and mild chronic microvascular ischemic change. No intracran ial bleeds or mass effects. Jackson-white matter interface is intact. No abnormal intracranial enhance ment. Diffusion weighted images demonstrate no acute ischemic insults. Brainstem appears normal. N ormal intravascular flow voids are present. Skull and face: Calvarial marrow signal is normal. Orbits appear normal. Sinuses: Sinuses and mastoids are clear. IMPRESSION: No finding to explain hearing loss. Mild global cerebral volume loss and mild chronic microvascular ischemic change. Reviewed by: Hipolito Becerra MD on 06/22/2020 8:31 AM PST Approved by: Hipolito Becerra MD on 06/22/2020 8:31 AM PST Station ID: [id number]
== END 2020-06-19 16:56 | disposition home or self-care (01) ==
LOC: DI 16:55
PROVIDERS: ATTEND Otolaryngology
DX: H91.22 Sudden idiopathic hearing loss, left ear (principal)
CPT/HCPCS: 70543; A9585

== ENCOUNTER 2020-09-11 13:58 | Outpatient (CLI) | payer MEDICARE ==
[2020-09-11 14:30] LABS: BASOPHILS % (AUTO) 0.6 %; EOSINOPHILS % (AUTO) 2.2 %; HCT - HEMATOCRIT 44.3 % (42.0-52.0); HGB - HEMOGLOBIN 14.7 g/dL (14.0-18.0); LYMPHOCYTES % (AUTO) 22.9 %; MEAN CORPUSCULAR HEMOGLOBIN 30.8 pg (27.0-31.0); MEAN CORPUSCULAR HGB CONC 33.2 g/dL (32.0-36.0); MEAN CORPUSCULAR VOLUME 92.7 fL (80.0-94.0); MEAN PLATELET VOLUME 10.8 fL (7.4-11.4); MONOCYTES % (AUTO) 6.3 %; NEUTROPHILS % (AUTO) 67.5 %; PLT - PLATELET COUNT 267 10^3/uL (130-450); RED BLOOD COUNT 4.78 10^6/uL (4.70-6.10); RED CELL DISTRIBUTION WIDTH 12.6 % (12.0-15.0); WHITE BLOOD COUNT 9.5 x10^3/uL (4.8-10.8)
[2020-09-11 14:45] LABS: ALBUMIN/GLOBULIN RATIO 1.2 (1.0-2.2); ALKALINE PHOSPHATASE 54 IU/L (42-121); ALT ALANINE AMINOTRANSFERASE 32 IU/L (10-60); AST ASPARTATE AMINOTRANSFERASE 23 IU/L (10-42); BILIRUBIN,TOTAL 0.7 mg/dL (0.2-1.0); BUN - BLOOD UREA NITROGEN 16 mg/dL (6-20); CALCIUM 9.3 mg/dL (8.5-10.3); CARBON DIOXIDE - CO2 23 mmol/L (21-32); CHLORIDE 107 mmol/L (101-111); CHOL/HDL RATIO 5.7 (<5.0); CHOLESTEROL 195 mg/dL; CREATININE 0.9 mg/dL (0.6-1.2); GFR - MDRD 84 (>89); GLUCOSE 109 mg/dL (70-100); HDL CHOLESTEROL 34 mg/dL; LDL CHOLESTEROL,CALCULATED 143 mg/dL; LDL/HDL RATIO 4.2 (<3.6); POTASSIUM 4.2 mmol/L (3.5-5.0); SODIUM 140 mmol/L (135-145); TOTAL PROTEIN 7.3 g/dL (6.7-8.2); TRIGLYCERIDES 91 mg/dL; VLDL CHOLESTEROL 18 mg/dL
[2020-09-11 14:57] LABS: THYROID STIMULATING HORMONE 1.14 uIU/mL (0.34-5.60)
[2020-09-11 15:03] LABS: ABNORMAL LYMPHS % (MANUAL) 0 %
[2020-09-11 15:39] LABS: BAND NEUTROPHILS % (MANUAL) 3 %; DIFFERENTIAL COMMENT MANUAL DIFFERENTIAL; EOSINOPHILS # (MANUAL) 0.1 10^3/uL (0-0.7); LYMPHOCYTES # (MANUAL) 2.4 10^3/uL (1.5-3.5); LYMPHOCYTES % (MANUAL) 25 %; MONOCYTES # (MANUAL) 0.6 10^3/uL (0.0-1.0); NEUTROPHILS # (MANUAL) 6.5 10^3/uL (1.5-6.6); PLATELET ESTIMATE, MANUAL NORMAL (130-450,000) (NORMAL); PLATELET MORPHOLOGY NORMAL APPEARANCE (NORMAL); RBC MORPHOLOGY (MULTIPLE) NORMAL APPEARANCE (NORMAL)
== END 2020-09-11 13:59 | disposition home or self-care (01) ==
LOC: LAB 13:58
PROVIDERS: ATTEND Internal Medicine
DX: I48.91 Unspecified atrial fibrillation (principal); I25.10 Atherosclerotic heart disease of native coronary artery without angina pectoris; N40.0 Benign prostatic hyperplasia without lower urinary tract symptoms
CPT/HCPCS: 36415; 80053; 80061; 83721; 84153; 84443; 85025

== ENCOUNTER 2021-01-28 17:30 | Outpatient (CLI) | payer MEDICARE ==
--- NOTE | 2021-01-28 18:37 | Ultrasound Report ---
PROCEDURE: Retroperitoneal Limited INDICATIONS: AAA WITHOUT ANEURYSM TECHNIQUE: Real-time scanning was performed of the retroperitoneal organs, with image documentation. COMPARISON: None. FINDINGS: Aorta: Proximal abdominal aorta measures 32 mm. Abdominal aorta measures 25 mm. Distal abdominal aort a measures 21 mm. Iliac arteries: Right common iliac artery measures 15 mm. Left common iliac artery measures 15 mm. 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 Annual sonographic survei llance recommended. Reviewed by: Mayank Thomas MD on 01/28/2021 6:35 PM PDT Approved by: Mayank Thomas MD on 01/28/2021 6:35 PM PDT Station ID: [id number]
== END 2021-01-28 17:31 | disposition home or self-care (01) ==
LOC: DI 17:30
PROVIDERS: ATTEND Internal Medicine Cardiovascular Disease
DX: I71.4 Abdominal aortic aneurysm, without rupture (principal)

== ENCOUNTER 2021-06-09 11:02 | Emergency (ER) | payer MEDICARE ==
--- NOTE | 2021-06-09 11:38 | ED Physician Documentation ---
History of Present Illness - Stated complaint Stated Complaint: GLF/LT SIDE RIB PX - Chief complaint Chief Complaint: Trauma Ch/Bk - Additonal information Additional information: 66-year-old male presents emergency department for evaluation of left-sided rib pain. He was taking the trash out this morning slipped on wet ground falling onto his left side and hip. Did not strike his head did not lose consciousness. Since then he has had pain on the left side of his ribs and pain with deep breaths. Patient is anticoagulated on Xarelto secondary to history of atrial fibrillation. 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 This is not new and has been present for 3 years. He denies any new facial deficits, slurred speech focal arm or leg weakness. He declined CT of his head. Review of Systems Constitutional: reports: Reviewed and negative Eyes: denies: Loss of vision, Decreased vision Ears: reports: Reviewed and negative Nose: reports: Reviewed and negative Throat: reports: Reviewed and negative Cardiac: reports: Other (left lower rib wall pain) Respiratory: denies: Dyspnea, Cough GI: reports: Reviewed and negative : denies: Dysuria, Frequency, Hesitancy Skin: denies: Rash, Lesions Musculoskeletal: reports: Reviewed and negative Neurologic: reports: Reviewed and negative Psychiatric: reports: Reviewed and negative Endocrine: reports: Reviewed and negative PD PAST MEDICAL HISTORY - Past Medical History Cardiovascular: Hypertension, Atrial fibrillation, Other Respiratory: COPD, Pneumonia, Sleep apnea Endocrine/Autoimmune: None GI: Colon polyps, Chronic diarrhea, Other : None HEENT: Chronic vision loss, Chronic sinusitis Psych: None Musculoskeletal: None Derm: Psoriasis - Past Surgical History Past Surgical History: Yes General: Appendectomy, Colonoscopy Cardiovascular: Other HEENT: Other Derm: Skin cancer surgery - Present Medications Home Medications: Ambulatory Orders Medication Instructions Recorded Confirmed Acyclovir 400 mg PO 5XD #25 tablet 09/13/17 Metoprolol Tartrate [Lopressor] 50 mg PO BID 09/13/17 09/13/17 Rivaroxaban [Xarelto] 09/13/17 Tamsulosin HCl [Flomax] 09/13/17 dexAMETHasone [Decadron] 4 mg PO DAILY #5 tablet 09/13/17 HYDROcod/ACETAM 5/325 [Alden 5/325] 1 tablet PO BID PRN #15 tablet 06/09/21 - Allergies Allergies/Adverse Reactions: Allergies Allergy/AdvReac Type Severity Reaction Status Date / Time Sulfa (Sulfonamide Allergy Rash Verified 06/09/21 11:11 Antibiotics) - Social History Does the pt smoke?: No Smoking Status: Never smoker Does the pt drink ETOH?: Yes Does the pt have substance abuse?: Yes - Immunizations Immunizations are current?: Yes - POLST Patient has POLST: No PD ED PE EXPANDED - General General: Alert, No acute distress, Well developed/nourished - HEENT HEENT: Atraumatic, PERRL, Other (Mild left-sided facial paresis sparing of the forehead) - Cardiac Cardiac: Regular Rhythm, Murmur Present, Radial strong equal, Cap refill < 2 sec, Chest wall TTP (Left lower lateral chest wall tenderness without ecchymosis. No crepitus.) - Respiratory Respiratory: Clear to ausultation ivy. No: Distress, Labored - Abdomen Abdomen: Normal Bowel sounds. No: Tender to palpation - Derm Derm: Normal color, Warm and dry, Bruising. No: Rash - Extremities Extremities: Normal. No: Deformity, Tenderness - Neuro Neuro: Alert and Oriented X 3, CNII-XII intact - GCS Eye Opening: Spontaneous Motor: Obeys Commands Verbal: Oriented Total: 15 Results - Vitals Vitals: Vital Signs - 24 hr 06/09/21 11:08 Temperature 36.0 C L Heart Rate 63 Respiratory 20 Rate Blood Pressure 149/74 H O2 Saturation 99 Oxygen O2 Source Room air - Rads (name of study) Ribs with PA left Radiology: Final report received (no dislaced rib fracture. No acute cardiopulmonary disease process.) PD MEDICAL DECISION MAKING - ED course Complexity details: reviewed results, re-evaluated patient, d/w patient ED course: 66-year-old male who is anticoagulated on Eliquis secondary to history of atrial fibrillation presents emergency department with left-sided chest wall and rib wall pain after ground-level fall this morning when he slipped on wet grass. Did not strike his head. He at baseline has left-sided mild facial paresis with forehead sparing secondary to a history of Adkins's palsy. He has fluid speech and no focal weakness in his arms or legs. He he did not lose consciousness and declines a CT of the head today. He did have tenderness elicited on the left side of his lower lateral rib wall without ecchymosis or crepitus. Rib series with PA of the chest showed no worrisome findings. I suspect he likely has contusions versus occult rib fracture. This gentleman is able to take full deep breaths without hypoxia. He breath sounds are otherwise clear. We will prescribe a limited amount of hydrocodone for analgesia. Emergent return precautions were discussed for shortness of air, hemoptysis fevers worsening symptoms. I am prescribing a short course of short-acting opioid pain medication for this patient. I have reviewed the patients GEAR GRINDER and no concerning findings were noted. I have discussed that the opioids are for short term therapy only, and will not be refilled from the ED. Departure - Departure Disposition: 01 Home, Self Care Clinical Impression: Fall from ground level, Anticoagulated Chest wall contusion Qualifiers: Encounter type: initial encounter Laterality: left Qualified Code(s): S20.212A - Contusion of left front wall of thorax, initial encounter Condition: Stable Record reviewed to determine appropriate education?: Yes Instructions: ED Contusion Chest Wall Ch Follow-Up: Bari Harkins MD [Primary Care Provider] - Prescriptions: HYDROcod/ACETAM 5/325 [Alden 5/325] 1 tablet PO BID PRN #15 tablet PRN Reason: Pain Comments: Lawrence you are seen in the emergency department today for pain on the left side of your chest wall after a ground-level fall. The x-ray does not show an obvious rib fracture or punctured lung. It is most likely that you have bruising of the ribs and in the muscles however a subtle or difficult to see fracture is not ruled out. However at this time treatment would not change. I do recommend that you place ice or cool compress over your chest wall that is tender. You can take Tylenol for pain. For severe pain I have prescribed a limited amount of hydrocodone. If despite this treatment you find that you are having worsening symptoms, develop any fevers, sudden shortness of air, have any bloody sputum or fainting episodes and you are to return immediately to the emergency department. I am prescribing a short course of narcotic pain medication for you. These are potentially dangerous and addictive medications that should be used carefully. These medications may constipate you. Take an hdaw-xqo-ercbikc stool softener (docusate) twice daily with plenty of water while taking these medications. If you go 24 hours without a bowel movement, take bhyk-[id number]-[id number] miralax, per package instructions. Do not drink or drive while taking these medications. If you received narcotic or sedating medications while in the emergency department, do not drive for 24 hours. Store this medication in a safe, secure place and out of reach of children. It is a violation of federal law to give or sell this medication to another person or to use in a manner other than prescribed. The ED will not refill narcotic prescriptions, including prescriptions lost or stolen. To dispose of unwanted medications: 1. [facility] at [address] in [place] has a medication drop box. They accept prescription medications (in pill form) Sunday through Sunday 9:00 a.m. to 5:00 p.m. 2. The [facility] accepts prescription medications (in pill form only) for disposal year round. Call for more information. 3. Contact the [facility] for the next [facility] sponsored prescription drug collection event. , [phone], or [phone]; Note that many narcotic pain relievers also contain Tylenol/acetaminophen. Please ensure that your total dose of acetaminophen from all sources does not exceed 3 g (3000 mg) per day. Your prescription has been sent electronically to the [facility] in [place].
[2021-06-09] MEDS: HYDROcod/ACETAM 5/325 MG TABLET PO STA (11:54)
[2021-06-09] MEDS: ACETAMINOPHEN 325 MG TABLET PO STA (11:55)
--- NOTE | 2021-06-09 12:39 | XRAY Report ---
PROCEDURE: Ribs w/PA Chest LT INDICATIONS: GLF; left rib pain; anticoagulated TECHNIQUE: 2 views of the left ribs were acquired, along with a single view chest. COMPARISON: Chest x-ray 11/06/2017 FINDINGS: Surgical changes and devices: None. Bones and chest wall: No fractures or dislocations. No suspicious bony lesions. Overlying soft tis sues appear unremarkable. Lungs and pleura: No pleural effusions or pneumothorax. Lungs appear clear. Mediastinum: Mediastinal contours appear normal. Heart size is normal. IMPRESSION: No displaced rib fracture. No acute cardiopulmonary disease process. Reviewed by: Izabela Hannon MD, PhD on 06/09/2021 11:31 AM [facility] Approved by: Izabela Hannon MD, PhD on 06/09/2021 11:31 AM [facility] Station ID: [id number]
[2021-06-09 13:08] VITALS: BP 152/97
== END 2021-06-09 13:06 | disposition home or self-care (01) ==
LOC: ED 11:02
DX: S20.212A Contusion of left front wall of thorax, initial encounter (principal); W01.0XXA Fall on same level from slipping, tripping and stumbling without subsequent striking against object, initial encounter; Y93.E9 Activity, other interior property and clothing maintenance; I48.91 Unspecified atrial fibrillation; Z79.01 Long term (current) use of anticoagulants; G51.0 Bell's palsy
CPT/HCPCS: 71101; 99283; A9270

== ENCOUNTER 2021-09-26 14:22 | Outpatient (CLI) | payer MEDICARE ==
[2021-09-26 17:49] LABS: BASOPHILS % (AUTO) 0.5 %; EOSINOPHILS # (AUTO) 0.1 10^3/uL (0.0-0.7); EOSINOPHILS % (AUTO) 1.8 %; HCT - HEMATOCRIT 45.8 % (42.0-52.0); HGB - HEMOGLOBIN 15.2 g/dL (14.0-18.0); LYMPHOCYTES # (AUTO) 1.8 10^3/uL (1.5-3.5); LYMPHOCYTES % (AUTO) 22.4 %; MEAN CORPUSCULAR HEMOGLOBIN 30.6 pg (27.0-31.0); MEAN CORPUSCULAR HGB CONC 33.2 g/dL (32.0-36.0); MEAN CORPUSCULAR VOLUME 92.3 fL (80.0-94.0); MEAN PLATELET VOLUME 11.5 fL (7.4-11.4); MONOCYTES # (AUTO) 0.6 10^3/uL (0.0-1.0); MONOCYTES % (AUTO) 7.9 %; NEUTROPHILS # (AUTO) 5.4 10^3/uL (1.5-6.6); NEUTROPHILS % (AUTO) 67.1 %; PLT - PLATELET COUNT 229 10^3/uL (130-450); RED BLOOD COUNT 4.96 10^6/uL (4.70-6.10); RED CELL DISTRIBUTION WIDTH 12.9 % (12.0-15.0)
[2021-09-26 18:19] LABS: ALBUMIN 3.9 g/dL (3.2-5.5); ALBUMIN/GLOBULIN RATIO 1.1 (1.0-2.2); ALKALINE PHOSPHATASE 50 IU/L (42-121); ALT ALANINE AMINOTRANSFERASE 24 IU/L (10-60); AST ASPARTATE AMINOTRANSFERASE 21 IU/L (10-42); BILIRUBIN,TOTAL 0.7 mg/dL (0.2-1.0); BUN - BLOOD UREA NITROGEN 19 mg/dL (6-20); CALCIUM 8.9 mg/dL (8.5-10.3); CARBON DIOXIDE - CO2 24 mmol/L (21-32); CHLORIDE 104 mmol/L (101-111); CHOL/HDL RATIO 3.7 (<5.0); CHOLESTEROL 141 mg/dL; CREATININE 0.9 mg/dL (0.6-1.2); GFR - MDRD 84 (>89); GLUCOSE 104 mg/dL (70-100); HDL CHOLESTEROL 38 mg/dL; LDL CHOLESTEROL,CALCULATED 88 mg/dL; LDL/HDL RATIO 2.3 (<3.6); POTASSIUM 4.1 mmol/L (3.5-5.0); SODIUM 138 mmol/L (135-145); TOTAL PROTEIN 7.5 g/dL (6.7-8.2); TRIGLYCERIDES 73 mg/dL; VLDL CHOLESTEROL 15 mg/dL
[2021-09-26 18:27] LABS: THYROID STIMULATING HORMONE 0.77 uIU/mL (0.34-5.60)
== END 2021-09-26 14:23 | disposition home or self-care (01) ==
LOC: LAB.N 14:22
PROVIDERS: ATTEND Internal Medicine
DX: I10 Essential (primary) hypertension (principal); E78.2 Mixed hyperlipidemia; N40.1 Benign prostatic hyperplasia with lower urinary tract symptoms; I48.0 Paroxysmal atrial fibrillation
CPT/HCPCS: 36415; 80053; 80061; 83721; 84153; 84443; 85025

== ENCOUNTER 2022-07-19 08:00 | Outpatient (CLI) | payer MEDICARE | END 2022-07-19 23:59 | disposition home or self-care (01) | LOC: LAB.N 08:00 | PROVIDERS: ATTEND Registered Nurse | DX: R05.1 Acute cough (principal); Z20.822 Contact with and (suspected) exposure to COVID-19 | CPT/HCPCS: 87637 ==

== ENCOUNTER 2022-07-24 23:33 | Emergency (ER) | payer MEDICARE ==
--- OUTSIDE RECORDS SUMMARY | 2022-07-24 23:53 | EXTERNAL MEDICAL SUMMARY RPT | Continuity of Care Document ---
:1955 Author Organization [facility] Address [address] [id number] Phone Allergies No information. Encounters No information. Functional Status No information. Immunizations No information. Medications No information. Problems date description facility 2022-06-19 15:13 Other tear of medial meniscus, current injury, [facility] left knee, in 2022-06-19 17:01 Other tear of medial meniscus, current injury, [facility] left knee, in Procedures No information. Results/Labs test date author facility value unit interpret ation Result panel 1 (unknown) (no (unknown) (unknown) (no value) (units (unk nown) date) unknown) (unknown) (no (unknown) (unknown) 06/19/22 (units (unkno wn) date) unknown) (unknown) (no (unknown) (unknown) 1. 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 (unknown) (no (unknown) (unknown) [address] [place] [address] (units (unknown) date) unknown) (unknown) (no (unknown) (unknown) 2. Medial meniscal (units (unknown) date) tearing. unknown) (unknown) (no (unknown) (unknown) 3. Low-grade (units (u nknown) date) tearing of the unknown) distal quadriceps tendon. (unknown) (no (unknown) (unknown) 4. Small knee (units ( unknown) date) joint effusion. unknown) (unknown) (no (unknown) (unknown) [id number] (units (unkno wn) date) unknown) (unknown) (no (unknown) (unknown) Accession Number: (units (unknown) date) [id number] unknown) (unknown) (no (unknown) (unknown) Age/Sex: 67 / M (units (unknown) date) Date of Service: unknown) (unknown) (no (unknown) (unknown) [place], [place] (units ( unknown) date) [id number] unknown) (unknown) (no (unknown) (unknown) Anterior (units (unkno wn) date) structures: The qu unknown) patellar tendon is intact. Low-grade partial (unknown) (no (unknown) (unknown) Approved by: (units (u nknown) date) Mayank Thomas M.D. unknown) on 06/19/2022 at 16:58 (unknown) (no (unknown) (unknown) Bones and (units (unkn own) date) cartilage: No bone unknown) marrow contusions or fractures. There is (unknown) (no (unknown) (unknown) COMPARISON: None. (units (unknown) date) unknown) (unknown) (no (unknown) (unknown) Caution: Report (units (unknown) date) not yet finalized unknown) and possibly incomplete! (unknown) (no (unknown) (unknown) Cruciate (units (unkno wn) date) ligaments: The unknown) anterior and posterior cruciate ligaments appear (unknown) (no (unknown) (unknown) : 1955 (units (unknown) date) Acct:[id number] unknown) (unknown) (no (unknown) (unknown) Dictated by: (units (u nknown) date) Mayank Thomas M.D. unknown) on 06/19/2022 at 16:04 (unknown) (no (unknown) (unknown) Draft (units (unkno wn) date) unknown) (unknown) (no (unknown) (unknown) FINDINGS: (units (unkn own) date) unknown) (unknown) (no (unknown) (unknown) IMPRESSION: (units (un known) date) unknown) (unknown) (no (unknown) (unknown) INDICATIONS: LEFT (units (unknown) date) KNEE PAIN unknown) (unknown) (no (unknown) (unknown) Image quality: (units (unknown) date) Excellent. unknown) (unknown) (no (unknown) (unknown) [facility] (units (unknown) date) unknown) (unknown) (no (unknown) (unknown) Joint space: There (units (unknown) date) is a small knee unknown) joint effusion and a trace Lau's cyst. (unknown) (no (unknown) (unknown) Lateral (units (unkno wn) date) structures: The unknown) lateral collateral ligament, long and short heads of (unknown) (no (unknown) (unknown) Lateral (units (unkno wn) date) unknown) (unknown) (no (unknown) (unknown) Loc: MRI (units (unkno wn) date) unknown) (unknown) (no (unknown) (unknown) Magnetic Resonance (units (unknown) date) Report unknown) (unknown) (no (unknown) (unknown) Medial structures: (units (unknown) date) The medial unknown) collateral ligament appears intact. Visualized (unknown) (no (unknown) (unknown) Menisci: Linear (units (unknown) date) oblique high T2 unknown) signal intensity traverses the inner, middle, (unknown) (no (unknown) (unknown) Noncontrast (units (un known) date) sagittal PD fast unknown) spin echo and T2 fast spin echo with fat (unknown) (no (unknown) (unknown) Normal (units (unkno wn) date) unknown) (unknown) (no (unknown) (unknown) Ordering Provider: (units (unknown) date) Brittani Jenkins MD unknown) (unknown) (no (unknown) (unknown) PROCEDURE: MR KNEE (units (unknown) date) LT WO CON unknown) (unknown) (no (unknown) (unknown) Patellar alignment (units (unknown) date) is normal. No unknown) femoral trochlear dysplasia or ventral (unknown) (no (unknown) (unknown) Patient: (units (unkno wn) date) TE JENSEN MR#: unknown) M000 (unknown) (no (unknown) (unknown) Procedure: MR knee (units (unknown) date) LT wo con unknown) (unknown) (no (unknown) (unknown) Signed (units (unkno wn) date) unknown) (unknown) (no (unknown) (unknown) TECHNIQUE: (units (unk nown) date) unknown) (unknown) (no (unknown) (unknown) Transcribed by: (units (unknown) date) VENITA on 06/19/2022 unknown) at 16:06 (unknown) (no (unknown) (unknown) and (units (unkno wn) date) unknown) (unknown) (no (unknown) (unknown) anterior (units (unkno wn) date) unknown) (unknown) (no (unknown) (unknown) appearing synovial (units (unknown) date) plicae are unknown) incidentally noted. (unknown) (no (unknown) (unknown) appears normal. (units (unknown) date) unknown) (unknown) (no (unknown) (unknown) articular (units (unkn own) date) cartilage loss unknown) diffusely overlies the weight-bearing aspects of the (unknown) (no (unknown) (unknown) band (units (unkno wn) date) unknown) (unknown) (no (unknown) (unknown) demonstrating (units ( unknown) date) inferior articular unknown) surface extension, indicating oblique tearing. (unknown) (no (unknown) (unknown) echo with (units (unkn own) date) unknown) (unknown) (no (unknown) (unknown) fat saturation, (units (unknown) date) and axial PD fast unknown) spin echo with fat saturation through the (unknown) (no (unknown) (unknown) femoral condyle (units (unknown) date) and lateral tibial unknown) plateau. Severe articular cartilage loss (unknown) (no (unknown) (unknown) femoris tendon (units (unknown) date) appear intact. The unknown) popliteus tendon appears normal. Iliotibial (unknown) (no (unknown) (unknown) formation with (units (unknown) date) surrounding unknown) degenerative marrow edema within the mid and (unknown) (no (unknown) (unknown) intact. (units (unkno wn) date) unknown) (unknown) (no (unknown) (unknown) knee. (units (unkno wn) date) unknown) (unknown) (no (unknown) (unknown) lateral (units (unkno wn) date) unknown) (unknown) (no (unknown) (unknown) meniscus is (units (un known) date) intact. unknown) (unknown) (no (unknown) (unknown) meniscus, (units (unkn own) date) unknown) (unknown) (no (unknown) (unknown) of the pes (units (unk nown) date) anserinus tendons unknown) appear normal. No abnormal bursal fluid. (unknown) (no (unknown) (unknown) osteophyte (units (unk nown) date) formation is unknown) present. Moderate articular cartilage loss diffusely (unknown) (no (unknown) (unknown) overlies the (units (u nknown) date) unknown) (unknown) (no (unknown) (unknown) overlies (units (unkno wn) date) unknown) (unknown) (no (unknown) (unknown) patellar apex and (units (unknown) date) adjacent portions unknown) of the medial and lateral patellar facets. (unknown) (no (unknown) (unknown) periarticular (units ( unknown) date) unknown) (unknown) (no (unknown) (unknown) peripheral thirds (units (unknown) date) of the anterior unknown) horn, body, and posterior horn medial (unknown) (no (unknown) (unknown) plateau. Mild (units ( unknown) date) unknown) (unknown) (no (unknown) (unknown) portions (units (unkno wn) date) unknown) (unknown) (no (unknown) (unknown) present. (units (unkno wn) date) unknown) (unknown) (no (unknown) (unknown) prominence. No (units (unknown) date) edema in the unknown) infrapatellar fat pad. (unknown) (no (unknown) (unknown) sagittal 3-D FLASH (units (unknown) date) with fat unknown) saturation; coronal T1 spin echo and PD fast spin (unknown) (no (unknown) (unknown) saturation, (units (un known) date) unknown) (unknown) (no (unknown) (unknown) subchondral cyst (units (unknown) date) unknown) (unknown) (no (unknown) (unknown) tearing of the (units (unknown) date) distal quadriceps unknown) tendon at the patellar insertion site is (unknown) (no (unknown) (unknown) the biceps (units (unk nown) date) unknown) (unknown) (no (unknown) (unknown) the weight-bearing (units (unknown) date) aspects of the unknown) medial femoral condyle and medial tibial (unknown) (no (unknown) (unknown) thickness (units (unkn own) date) unknown) (unknown) (no (unknown) (unknown) trochlear (units (unkn own) date) unknown) (unknown) (no (unknown) (unknown) weight-bearing (units (unknown) date) aspects of the unknown) medial tibial plateau. Mild tricompartmental Social History No information. Vital Signs No information.
[2022-07-25 00:07] LABS: BASOPHILS % (AUTO) 0.7 %; EOSINOPHILS % (AUTO) 1.3 %; HCT - HEMATOCRIT 41.1 % (42.0-52.0); HGB - HEMOGLOBIN 13.7 g/dL (14.0-18.0); LYMPHOCYTES % (AUTO) 26.1 %; MEAN CORPUSCULAR HEMOGLOBIN 30.2 pg (27.0-31.0); MEAN CORPUSCULAR HGB CONC 33.3 g/dL (32.0-36.0); MEAN CORPUSCULAR VOLUME 90.5 fL (80.0-94.0); MEAN PLATELET VOLUME 11.2 fL (7.4-11.4); NEUTROPHILS % (AUTO) 63.5 %; PLT - PLATELET COUNT 240 10^3/uL (130-450); RED BLOOD COUNT 4.54 10^6/uL (4.70-6.10); RED CELL DISTRIBUTION WIDTH 13.1 % (12.0-15.0); WHITE BLOOD COUNT 11.1 x10^3/uL (4.8-10.8)
[2022-07-25 00:13] LABS: ABNORMAL LYMPHS % (MANUAL) 0 %; BAND NEUTROPHILS % (MANUAL) 0 %
[2022-07-25 00:22] LABS: ALBUMIN 3.5 g/dL (3.2-5.5); ALBUMIN/GLOBULIN RATIO 1.1 (1.0-2.2); BILIRUBIN,TOTAL 0.9 mg/dL (0.2-1.0); CALCIUM 9.2 mg/dL (8.5-10.3); CREATININE 1.1 mg/dL (0.6-1.2); POTASSIUM 3.4 mmol/L (3.5-5.0); TOTAL PROTEIN 6.6 g/dL (6.7-8.2)
[2022-07-25 00:33] LABS: DIFFERENTIAL COMMENT MANUAL DIFFERENTIAL; EOSINOPHILS # (MANUAL) 0.1 10^3/uL (0-0.7); LYMPHOCYTES # (MANUAL) 1.8 10^3/uL (1.5-3.5); LYMPHOCYTES % (MANUAL) 16 %; MONOCYTES # (MANUAL) 0.8 10^3/uL (0.0-1.0); NEUTROPHILS # (MANUAL) 8.4 10^3/uL (1.5-6.6); PLATELET ESTIMATE, MANUAL NORMAL (130-450,000) (NORMAL); PLATELET MORPHOLOGY NORMAL APPEARANCE (NORMAL); RBC MORPHOLOGY (MULTIPLE) NORMAL APPEARANCE (NORMAL); WBC MORPHOLOGY (MULTIPLE) NORMAL APPEARANCE (NORMAL)
--- NOTE | 2022-07-25 00:33 | XRAY Report ---
PROCEDURE: Chest 1 View X-Ray INDICATIONS: Chest pain TECHNIQUE: One view of the chest was acquired. COMPARISON: Chest x-ray 05/28/2017. FINDINGS: Surgical changes and devices: None. Lungs and pleura: No pleural effusions or pneumothorax. There is hyperinflation of the lungs with fl attening of the hemidiaphragms compatible with COPD. No acute consolidation. Mediastinum: Mediastinal contours appear normal. Heart size is normal. Bones and chest wall: No suspicious bony lesions. Overlying soft tissues appear unremarkable. IMPRESSION: 1. No acute cardiopulmonary disease. 2. Findings compatible with COPD. Reviewed by: Prabhjot Burleson MD on 07/25/2022 12:32 AM [facility] Approved by: Prabhjot Burleson MD on 07/25/2022 12:32 AM [facility] Station ID: [id number]
--- NOTE | 2022-07-25 00:39 | ED Physician Documentation ---
PD HPI CHEST PAIN - Stated complaint Stated Complaint: AFIB - Chief complaint Chief Complaint: Cardiac - History obtained from History obtained from: Patient - Additional information Additional information: 67-year-old man with history of asthma/copd, A-fib status post cardiac ablation 5 years ago on Xarelto and metoprolol presents with dizziness from home. Patient states that he felt lightheaded and checked his heart rhythm on a cardia device which said he was in atrial fibrillation, so he came to the emergency department. Otherwise states that he feels normal. Did have a "bad cold" a month ago from which he is still recovering and is currently on antibiotics day 4 of 14. Denies hemoptysis, leg swelling, shortness of breath. Review of Systems Cardiac: denies: Chest pain / pressure Respiratory: denies: Dyspnea, Cough Neurologic: reports: Other (lightheadedness) PD PAST MEDICAL HISTORY - Past Medical History Cardiovascular: Hypertension, Atrial fibrillation, Other Respiratory: COPD, Pneumonia, Sleep apnea Endocrine/Autoimmune: None GI: Colon polyps, Chronic diarrhea, Other : None HEENT: Chronic vision loss, Chronic sinusitis Psych: None Musculoskeletal: None Derm: Psoriasis - Past Surgical History Past Surgical History: Yes General: Appendectomy, Colonoscopy Cardiovascular: Other HEENT: Other Derm: Skin cancer surgery - Present Medications Home Medications: Ambulatory Orders Medication Instructions Recorded Confirmed Acyclovir 400 mg PO 5XD #25 tablet 09/13/17 Metoprolol Tartrate [Lopressor] 50 mg PO BID 09/13/17 09/13/17 Rivaroxaban [Xarelto] 09/13/17 Tamsulosin HCl [Flomax] 09/13/17 dexAMETHasone [Decadron] 4 mg PO DAILY #5 tablet 09/13/17 HYDROcod/ACETAM 5/325 [[place] 5/325] 1 tablet PO BID PRN #15 tablet 06/09/21 - Allergies Allergies/Adverse Reactions: Allergies Allergy/AdvReac Type Severity Reaction Status Date / Time Sulfa (Sulfonamide Allergy Rash Verified 07/24/22 23:51 Antibiotics) - Social History Does the pt smoke?: No Smoking Status: Never smoker Does the pt drink ETOH?: Yes Does the pt have substance abuse?: Yes - Immunizations Immunizations are current?: Yes - POLST Patient has POLST: No PD ED PE NORMAL - Vitals Vital signs reviewed: Yes - General General: Alert and oriented X 3, No acute distress, Other (elderly appearing) - HEENT HEENT: Atraumatic, PERRL, EOMI - Neck Neck: Supple, no meningeal sign - Cardiac Cardiac: Other (regular rate, irregular rhythm) - Respiratory Respiratory: No respiratory distress, Other (coarse bilateral breath sounds) - Abdomen Abdomen: Non tender, Non distended Results - Vitals Vitals: Vital Signs - 24 hr 07/24/22 07/25/22 07/25/22 23:45 02:22 03:15 Temperature 36.6 C 36.2 C L Heart Rate 90 77 83 Respiratory 21 13 16 Rate Blood Pressure 149/90 H 113/86 H 134/91 H O2 Saturation 100 98 97 Oxygen O2 Source Room air - EKG (time done) 2337 Rate: Rate (enter#) (83) Rhythm: NSR Other comments: Other comments (ventricular bigeminy - similar to prior ekg 11/06/17 with trigeminy. also with LAD and abnormal R wave progression on prior ekg) - Labs Labs: Laboratory Tests 07/25/22 07/25/22 07/25/22 00:00 00:00 00:00 WBC 11.1 H RBC 4.54 L Hgb 13.7 L Hct 41.1 L MCV 90.5 MCH 30.2 MCHC 33.3 RDW 13.1 Plt Count 240 MPV 11.2 Neut # (Auto) Not Reportable Lymph # (Auto) Not Reportable [place] # (Auto) Not Reportable Eos # (Auto) Not Reportable Baso # (Auto) Not Reportable Absolute Nucleated RBC Not Reportable Total Counted 100 Band Neuts % (Manual) 0 Abnorm Lymph % (Manual) 0 Nucleated RBC % Not Reportable Neutrophils # (Manual) 8.4 H Lymphocytes # (Manual) 1.8 Monocytes # (Manual) 0.8 Eosinophils # (Manual) 0.1 Basophils # (Manual) 0.0 Differential Comment MANUAL DIFFERENTIAL WBC Morphology NORMAL APPEARANCE Platelet Estimate NORMAL (130-450,000) Platelet Morphology NORMAL APPEARANCE RBC Morph Micro Appear NORMAL APPEARANCE Sodium 141 Potassium 3.4 L Chloride 112 H Carbon Dioxide 22 Anion Gap 7.0 BUN 25 H Creatinine 1.1 Estimated GFR (MDRD) 66 L Glucose 104 H Calcium 9.2 Total Bilirubin 0.9 AST 35 ALT 38 Alkaline Phosphatase 48 Troponin I High Sens 26.3 H* Total Protein 6.6 L Albumin 3.5 Globulin 3.1 Albumin/Globulin Ratio 1.1 Lipase 39 07/25/22 01:40 WBC RBC Hgb Hct MCV MCH MCHC RDW Plt Count MPV Neut # (Auto) Lymph # (Auto) [place] # (Auto) Eos # (Auto) Baso # (Auto) Absolute Nucleated RBC Total Counted Band Neuts % (Manual) Abnorm Lymph % (Manual) Nucleated RBC % Neutrophils # (Manual) Lymphocytes # (Manual) Monocytes # (Manual) Eosinophils # (Manual) Basophils # (Manual) Differential Comment WBC Morphology Platelet Estimate Platelet Morphology RBC Morph Micro Appear Sodium Potassium Chloride Carbon Dioxide Anion Gap BUN Creatinine Estimated GFR (MDRD) Glucose Calcium Total Bilirubin AST ALT Alkaline Phosphatase Troponin I High Sens 24.9 H* Total Protein Albumin Globulin Albumin/Globulin Ratio Lipase PD Medical Decision Making - ED course ED course: 67-year-old with history of cardiac arrhythmia presents to the emergency department in [facility] as evidenced by his cardiac exercise physiologist and EKG. On chart review, patient has history of trigeminy in the past. CBC, abdominal panel, troponin, EKG, and chest x-ray were ordered.Chest x-ray uncovered no acute cardiopulmonary disease. EKG was bigeminy and repeated to be stable. CBC remarkable for some mild anemia of 13.7, down from 15.2 ten months prior. Patient denies blood in the stool and states he will follow-up with his doctors regarding this. Abdominal panel noncontributory. Troponin 26.3 with repeat 24.9. I discussed these findings with Dr. Chris Garg, on-call for patient's metal control worker Dr. Paco Conte in [place]. We discussed that the bigeminy may be causing his lightheadedness, and since his heart rate has been in the low 60s with multiple pvcs here in the emergency department, he may benefit from lowering the dose of his metoprolol. Plan is to have him follow up urgently with cardiology in the morning for further management and care. Return precautions given. Departure - Departure Disposition: 01 Home, Self Care Clinical Impression: Dizziness, Bigeminy, Anemia Condition: Stable Instructions: Premature Ventricular Contract About Follow-Up: Cruz Conte MD [Physician No Access] - Comments: You are seen in the emergency department for evaluation of dizziness. You have a heart rhythm problem called bigeminy that may be responsible for your dizziness. If bigeminy makes your heart rate too slow, your metal control worker may recommend a permanent pacemaker to maintain a minimum heart rate. Another option is Please make sure that you follow-up with Dr. Conte this week and return to the emergency department if you experience another episode of dizziness or have any new or worsening symptoms or other concerns. When in doubt, it is better to come in.
[2022-07-25 03:48] VITALS: BP 145/86
== END 2022-07-25 03:48 | disposition home or self-care (01) ==
LOC: ED 23:33
DX: I49.8 Other specified cardiac arrhythmias (principal); D64.9 Anemia, unspecified; I48.91 Unspecified atrial fibrillation; Z79.01 Long term (current) use of anticoagulants; I10 Essential (primary) hypertension
CPT/HCPCS: 36415; 80053; 83690; 83735; 84484; 85025; 93005; 99284

== ENCOUNTER 2022-09-22 13:55 | Outpatient (CLI) | payer MEDICARE ==
[2022-09-22 14:23] LABS: CALCIUM 9.5 mg/dL (8.5-10.3); CREATININE 1.1 mg/dL (0.6-1.2); POTASSIUM 4.4 mmol/L (3.5-5.0)
== END 2022-09-22 13:56 | disposition home or self-care (01) ==
LOC: LAB 13:55
PROVIDERS: ATTEND Nurse Practitioner
DX: I48.0 Paroxysmal atrial fibrillation (principal)
CPT/HCPCS: 36415; 80048

== ENCOUNTER 2023-06-28 14:49 | Outpatient (CLI) | payer MEDICARE ==
[2023-06-28 15:00] LABS: BASOPHILS # (AUTO) 0.1 10^3/uL (0.0-0.1); BASOPHILS % (AUTO) 0.5 %; EOSINOPHILS # (AUTO) 0.1 10^3/uL (0.0-0.7); EOSINOPHILS % (AUTO) 0.5 %; HCT - HEMATOCRIT 45.1 % (42.0-52.0); LYMPHOCYTES # (AUTO) 1.6 10^3/uL (1.5-3.5); LYMPHOCYTES % (AUTO) 14.9 %; MEAN CORPUSCULAR HEMOGLOBIN 30.4 pg (27.0-31.0); MEAN CORPUSCULAR HGB CONC 33.3 g/dL (32.0-36.0); MEAN CORPUSCULAR VOLUME 91.5 fL (80.0-94.0); MEAN PLATELET VOLUME 10.8 fL (7.4-11.4); MONOCYTES # (AUTO) 0.6 10^3/uL (0.0-1.0); MONOCYTES % (AUTO) 5.7 %; NEUTROPHILS # (AUTO) 8.2 10^3/uL (1.5-6.6); PLT - PLATELET COUNT 215 10^3/uL (130-450); RED BLOOD COUNT 4.93 10^6/uL (4.70-6.10); RED CELL DISTRIBUTION WIDTH 13.1 % (12.0-15.0); WHITE BLOOD COUNT 10.5 x10^3/uL (4.8-10.8)
[2023-06-28 15:45] LABS: ALBUMIN 4.2 g/dL (3.2-5.5); ALBUMIN/GLOBULIN RATIO 1.4 (1.0-2.2); ALKALINE PHOSPHATASE 55 IU/L (42-121); ALT ALANINE AMINOTRANSFERASE 20 IU/L (10-60); AST ASPARTATE AMINOTRANSFERASE 22 IU/L (10-42); BILIRUBIN,TOTAL 0.8 mg/dL (0.2-1.0); BUN - BLOOD UREA NITROGEN 17 mg/dL (6-20); CALCIUM 9.7 mg/dL (8.5-10.3); CARBON DIOXIDE - CO2 25 mmol/L (21-32); CHLORIDE 104 mmol/L (101-111); CHOL/HDL RATIO 2.5 (<5.0); CHOLESTEROL 104 mg/dL; CREATININE 1.2 mg/dL (0.6-1.3); GFR - MDRD 60 (>89); GLUCOSE 73 mg/dL (74-104); HDL CHOLESTEROL 41 mg/dL; LDL CHOLESTEROL,CALCULATED 46 mg/dL; LDL/HDL RATIO 1.1 (<3.6); SODIUM 139 mmol/L (135-145); TOTAL PROTEIN 7.1 g/dL (6.4-8.9); TRIGLYCERIDES 84 mg/dL (48-352); VLDL CHOLESTEROL 17 mg/dL
[2023-06-28 15:59] LABS: THYROID STIMULATING HORMONE 1.26 uIU/mL (0.34-5.60)
== END 2023-06-28 14:50 | disposition home or self-care (01) ==
LOC: LAB 14:49
PROVIDERS: ATTEND Internal Medicine
DX: I10 Essential (primary) hypertension (principal); E78.2 Mixed hyperlipidemia; N40.1 Benign prostatic hyperplasia with lower urinary tract symptoms; I48.0 Paroxysmal atrial fibrillation
CPT/HCPCS: 36415; 80053; 80061; 83721; 84153; 84443; 85025

== ENCOUNTER 2023-07-25 22:44 | Emergency (ER) | payer MEDICARE ==
[2023-07-25 22:56] VITALS: O2SAT 100
--- NOTE | 2023-07-25 23:18 | ED Physician Documentation ---
History of Present Illness - Stated complaint Stated Complaint: OBJECT IN THROAT - Chief complaint Chief Complaint: Heent - History obtained from History obtained from: Patient - Additonal information Additional information: 68 y M with pmh afib, copd, htn, p/w foreign body sensation after choking on a fish bone while eating smoked salmon tonight. patient is unsure if there is a bone lodged in his left throat. no soa. speaking normally PD PAST MEDICAL HISTORY - Past Medical History Cardiovascular: Hypertension, Atrial fibrillation, Other Respiratory: COPD, Pneumonia, Sleep apnea Endocrine/Autoimmune: None GI: Colon polyps, Chronic diarrhea, Other : None HEENT: Chronic vision loss, Chronic sinusitis Psych: None Musculoskeletal: None Derm: Psoriasis - Past Surgical History Past Surgical History: Yes General: Appendectomy, Colonoscopy Cardiovascular: Other HEENT: Other Derm: Skin cancer surgery - Present Medications Home Medications: Ambulatory Orders Medication Instructions Recorded Confirmed Metoprolol Tartrate [Lopressor] 50 mg PO BID 09/13/17 09/13/17 Rivaroxaban [Xarelto] 10 mg PO DAILY 09/13/17 Tamsulosin HCl [Flomax] 0.4 mg PO DAILY 09/13/17 - Allergies Allergies/Adverse Reactions: Allergies Allergy/AdvReac Type Severity Reaction Status Date / Time Sulfa (Sulfonamide Allergy Rash Verified 07/25/23 22:52 Antibiotics) - Social History Does the pt smoke?: No Smoking Status: Never smoker Does the pt drink ETOH?: Yes Does the pt have substance abuse?: Yes - Immunizations Immunizations are current?: Yes - POLST Patient has POLST: No PD ED PE NORMAL - Vitals Vital signs reviewed: Yes - General General: Alert and oriented X 3, No acute distress, Well developed/nourished - HEENT HEENT: Atraumatic, PERRL, EOMI, Moist mucous membranes, Pharynx benign, Other (normal upper airway sounds on neck auscultation) - Cardiac Cardiac: RRR - Respiratory Respiratory: No respiratory distress, Clear bilaterally Results - Vitals Vitals: Vital Signs - 24 hr 07/25/23 22:45 Temperature 36.6 C Heart Rate 87 Respiratory 18 Rate Blood Pressure 156/83 H O2 Saturation 100 Oxygen O2 Source Room air PD Medical Decision Making - ED course ED course: 68yM presents with concern for fishbone stuck in throat. xrays performed and wet read shows possible bone on left pharyngeal area. Patient tolerating po, protecting his airway, expressing discomfort but no pain and denying pain meds. official read shows foreign body at level of c3 without subQ emphysema or signs of inflammation or swelling. d/w Dr. Mayes, surgeon environmental permitting specialist who states he is unable to address the issue. Spoke with Dr. Ceja, OMFS who is not environmental permitting specialist and unavailable for procedure tonight unfortunately. d/w Dr. Hewitt, ENT in [place] with [facility] who recommends discharge and outpatient follow up in his clinic first thing in the morning. Provided patient's name, and phone number and the office will be waiting for him. Strict return precautions given. Departure - Departure Disposition: Home, Self Care Clinical Impression: Foreign body in throat Condition: Stable Instructions: ED Foreign Body Swallowed Adult Comments: You were seen in the emergency department for fish bone caught in the throat. Please call Dr. Hewitt's office first thing in the morning to schedule removal today (07/26/23). This is time sensitive and should be removed urgently (within 24 hours). If you are unable to have it removed in clinic for some reason you may go to the ER at [facility] or [facility], since they have ENT capabilities and can address the issue. Please return to the emergency department if you have any new or worsening symptoms or other concerns. Dr. Nasim Hewitt [facility] [address] [place] [address] Forms: PCP List
--- NOTE | 2023-07-25 23:29 | XRAY Report ---
PROCEDURE: Neck Soft Tissue INDICATIONS: fish bone lodged in left side of throat TECHNIQUE: 2 views of the neck were acquired. COMPARISON: None. FINDINGS: Airway: The airway appears patent. Soft tissues: Prevertebral soft tissues are normal in thickness. The epiglottis and aryepiglottic f olds appear normal. No soft tissue gas. Questionable linear calcification involving prevertebral so ft tissue C3 level. Bones: No suspicious bony lesions. Visualized cervical spine is normally aligned. IMPRESSION: Possible fishbone in prevertebral soft tissue C3 level, suggest clinical correlation. Airway is paten t. No significant neck soft tissue swelling. No subcutaneous emphysema. Reviewed by: Wilton Brito MD on 07/25/2023 11:27 PM PST Approved by: Wilton Brito MD on 07/25/2023 11:27 PM PST Station ID: [id number]
[2023-07-26 00:55] VITALS: BP 148/81
== END 2023-07-26 00:46 | disposition home or self-care (01) ==
LOC: ED 22:44
DX: T18.9XXA Foreign body of alimentary tract, part unspecified, initial encounter (principal); X58.XXXA Exposure to other specified factors, initial encounter
CPT/HCPCS: 99284

== ENCOUNTER 2023-09-19 19:34 | Emergency (ER) | payer MEDICARE ==
[2023-09-19 20:38] LABS: BASOPHILS # (AUTO) 0.1 10^3/uL (0.0-0.1); BASOPHILS % (AUTO) 0.6 %; RED CELL DISTRIBUTION WIDTH 13.7 % (12.0-15.0)
[2023-09-19] MEDS: SODIUM CHLORIDE 0.9% 1,000 ML IV STA (20:39)
[2023-09-19 20:40] LABS: EOSINOPHILS # (AUTO) 0.1 10^3/uL (0.0-0.7); EOSINOPHILS % (AUTO) 1.3 %; HGB - HEMOGLOBIN 14.3 g/dL (14.0-18.0); LYMPHOCYTES # (AUTO) 1.7 10^3/uL (1.5-3.5); MEAN CORPUSCULAR HEMOGLOBIN 31.4 pg (27.0-31.0); MEAN CORPUSCULAR VOLUME 92.1 fL (80.0-94.0); MEAN PLATELET VOLUME 11.2 fL (7.4-11.4); MONOCYTES # (AUTO) 0.6 10^3/uL (0.0-1.0); MONOCYTES % (AUTO) 6.4 %; NEUTROPHILS # (AUTO) 7.1 10^3/uL (1.5-6.6); NEUTROPHILS % (AUTO) 73.5 %; PLT - PLATELET COUNT 217 10^3/uL (130-450); RED BLOOD COUNT 4.56 10^6/uL (4.70-6.10); WHITE BLOOD COUNT 9.7 x10^3/uL (4.8-10.8)
--- NOTE | 2023-09-19 20:46 | ED Physician Documentation ---
History of Present Illness - Stated complaint Stated Complaint: LIGHT HEADED - Chief complaint Chief Complaint: General - History obtained from History obtained from: Patient - Additonal information Additional information: Patient comes to the emergency department chief complaint of feeling "woozy" and lightheaded around 1630 today. He states he also felt a fullness behind his left eye and has noticed it seemed a little puffy. Patient denies any visual changes. No focal neurologic deficits. That are new. 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 He had diarrhea yesterday but this is resolved today. He states that he has not had any other GI symptoms. No upper respiratory symptoms. No fevers. He states he otherwise feels fairly well. He thinks he may be a bit dehydrated. He has never had anything like this happen before. No other complaints at this time. PD PAST MEDICAL HISTORY - Past Medical History Cardiovascular: Hypertension, Atrial fibrillation, Other Respiratory: COPD, Pneumonia, Sleep apnea Endocrine/Autoimmune: None GI: Colon polyps, Chronic diarrhea, Other : None HEENT: Chronic vision loss, Chronic sinusitis Psych: None Musculoskeletal: None Derm: Psoriasis - Past Surgical History Past Surgical History: Yes General: Appendectomy, Colonoscopy Cardiovascular: Other HEENT: Other Derm: Skin cancer surgery - Present Medications Home Medications: Ambulatory Orders Medication Instructions Recorded Confirmed Metoprolol Tartrate [Lopressor] 50 mg PO BID 09/13/17 09/13/17 Rivaroxaban [Xarelto] 10 mg PO DAILY 09/13/17 Tamsulosin HCl [Flomax] 0.4 mg PO DAILY 09/13/17 - Allergies Allergies/Adverse Reactions: Allergies Allergy/AdvReac Type Severity Reaction Status Date / Time Sulfa (Sulfonamide Allergy Rash Verified 09/19/23 19:53 Antibiotics) - Social History Does the pt smoke?: No Smoking Status: Never smoker Does the pt drink ETOH?: Yes Does the pt have substance abuse?: Yes - Immunizations Immunizations are current?: Yes - POLST Patient has POLST: No PD ED PE NORMAL - Vitals Vital signs reviewed: Yes - General General: Alert and oriented X 3, No acute distress, Well developed/nourished - HEENT HEENT: Atraumatic, PERRL, EOMI, Moist mucous membranes - Neck Neck: Supple, no meningeal sign - Cardiac Cardiac: Strong equal pulses, Other (Irregularly irregular rate , 3 out of 6 systolic murmur.) - Respiratory Respiratory: No respiratory distress, Clear bilaterally - Abdomen Abdomen: Soft, Non tender, Non distended - Derm Derm: Normal color, Warm and dry, No rash - Extremities Extremities: No deformity, No edema - Neuro Neuro: Alert and oriented X 3, community health navigator 2-12 intact, No motor deficit, No sensory deficit, Normal speech - Psych Psych: Normal mood, Normal affect Results - Vitals Vitals: Vital Signs - 24 hr 09/19/23 09/19/23 19:35 22:15 Temperature 37.0 C Heart Rate 84 67 Respiratory 17 20 Rate Blood Pressure 135/69 H 123/86 H O2 Saturation 98 97 Oxygen O2 Source Room air - Labs Labs: Laboratory Tests 09/19/23 09/19/23 20:31 20:31 WBC 9.7 RBC 4.56 L Hgb 14.3 Hct 42.0 MCV 92.1 MCH 31.4 H MCHC 34.0 RDW 13.7 Plt Count 217 MPV 11.2 Neut # (Auto) 7.1 H Lymph # (Auto) 1.7 [place] # (Auto) 0.6 Eos # (Auto) 0.1 Baso # (Auto) 0.1 Absolute Nucleated RBC 0.00 Nucleated RBC % 0.0 Sodium 136 Potassium 3.8 Chloride 108 Carbon Dioxide 21 Anion Gap 7.0 BUN 21 H Creatinine 1.1 Estimated GFR (MDRD) 66 L Glucose 86 Calcium 9.6 Total Bilirubin 0.9 AST 19 ALT 20 Alkaline Phosphatase 53 Total Protein 6.8 Albumin 4.0 Globulin 2.8 Albumin/Globulin Ratio 1.4 Lipase 43 PD Medical Decision Making - ED course Complexity details: reviewed results, re-evaluated patient, considered differential, d/w patient ED course: CBC and ER abd panel were unremarkable, and pt was feeling better after symptomatic treatment with IV fluids. Pt was stable for d/c home. We have discussed home management of the sx, the need to take all abx doses as directed, and the usual indications for return. Departure - Departure Disposition: 01 Home, Self Care Clinical Impression: Lightheadedness, Dehydration Condition: Stable Instructions: ED Dehydration Comments: Your labs and head CT look good. There is no evidence of a tumor, fluid, or anything else behind your left eye. You have been treated for dehydration today and this may have contributed to your sense of "wooziness" and lightheadedness. If you continue to have strange feelings after the next week or so, please follow-up with your primary doctor. For now, there is no evidence of an emergent condition and you are stable to go home. Forms: PCP List Discharge Date/Time: 09/19/23 22:15
[2023-09-19 20:56] LABS: ALBUMIN/GLOBULIN RATIO 1.4 (1.0-2.2); BILIRUBIN,TOTAL 0.9 mg/dL (0.2-1.0); CALCIUM 9.6 mg/dL (8.5-10.3); CREATININE 1.1 mg/dL (0.6-1.3); POTASSIUM 3.8 mmol/L (3.5-4.5); TOTAL PROTEIN 6.8 g/dL (6.4-8.9)
--- NOTE | 2023-09-19 21:26 | CT Report ---
PROCEDURE: Head WO INDICATIONS: dizzy, fullness behind L eye TECHNIQUE: Noncontrast 4.5 mm thick angled axial sections acquired from the foramen magnum to the vertex. For r adiation dose reduction, the following was used: automated exposure control, adjustment of mA and/or kV according to patient size. COMPARISON: CT head 09/13/2017 FINDINGS: Image quality: Excellent. The ventricular system and cortical sulci demonstrate atrophy, consistent for patient's stated age. There are areas of hypodensity in the periventricular and subcortical white matter. There is no acut e intra or extra-axial fluid collection. No acute hemorrhage, mass lesion or midline shift. Brainst em is unremarkable. Globes are symmetrical. Sinuses are aerated. Osseous structures are intact. IMPRESSION: 1. No acute intracranial process. 2. Mild to moderate atrophy and chronic microvascular ischemic changes. Reviewed by: Odette Bob MD on 09/19/2023 9:24 PM PDT Approved by: Odette Bob MD on 09/19/2023 9:24 PM PDT Station ID: [id number]
[2023-09-19 22:19] VITALS: BP 123/86; O2SAT 97
== END 2023-09-19 22:15 | disposition home or self-care (01) ==
LOC: ED 19:34
DX: E86.0 Dehydration (principal); R42 Dizziness and giddiness; I10 Essential (primary) hypertension; I48.91 Unspecified atrial fibrillation; J44.9 Chronic obstructive pulmonary disease, unspecified; Z79.899 Other long term (current) drug therapy
CPT/HCPCS: 36415; 80053; 83690; 85025; 93005; 96360; 99284

== ENCOUNTER 2023-10-03 09:23 | Observation (INO) | payer MEDICARE ==
--- NOTE | 2023-10-03 09:50 | ED Physician Documentation ---
PD HPI GI BLEED - Stated complaint Stated Complaint: - Chief complaint Chief Complaint: Abd Pain - History obtained from History obtained from: Patient - Additional information Additional information: . 68-year-old gentleman with history of A-fib on Xarelto, remote appendectomy and remote esophageal ulcer not on a PPI presents with dark stool today coated with blood. Single episode so far. Not associated with rectal or abdominal pain. No dizziness or weakness. PD PAST MEDICAL HISTORY - Past Medical History Past Medical History: Yes Cardiovascular: Hypertension, Atrial fibrillation, Other Respiratory: COPD, Pneumonia, Sleep apnea Endocrine/Autoimmune: None GI: Colon polyps, Chronic diarrhea, Other : None HEENT: Chronic vision loss, Chronic sinusitis Psych: None Musculoskeletal: None Derm: Psoriasis - Past Surgical History Past Surgical History: Yes General: Appendectomy, Colonoscopy Cardiovascular: Other HEENT: Other Derm: Skin cancer surgery - Present Medications Home Medications: Ambulatory Orders Medication Instructions Recorded Confirmed Atorvastatin Calcium 40 mg PO HS 10/03/23 10/03/23 Gabapentin [Neurontin] 100 mg PO HS 10/03/23 10/03/23 Losartan Potassium 100 mg PO DAILY 10/03/23 10/03/23 Magnesium Oxide 400 mg PO BID 10/03/23 10/03/23 Metoprolol Succinate [Toprol Xl] 25 mg PO DAILY 10/03/23 10/03/23 Montelukast [Singulair] 10 mg PO DAILY 10/03/23 10/03/23 Potassium Chloride 10 meq PO DAILY 10/03/23 10/03/23 Rivaroxaban [Xarelto] 20 mg PO DAILY 10/03/23 10/03/23 - Allergies Allergies/Adverse Reactions: Allergies Allergy/AdvReac Type Severity Reaction Status Date / Time Sulfa (Sulfonamide Allergy Rash Verified 10/03/23 09:36 Antibiotics) - Social History Does the pt smoke?: No Smoking Status: Current some day smoker Does the pt drink ETOH?: Yes Does the pt have substance abuse?: No - Immunizations Immunizations are current?: Yes - POLST Patient has POLST: No PD ED PE NORMAL - Vitals Vital signs reviewed: Yes (Mild resting tachycardia) - General General: Alert and oriented X 3, No acute distress - Respiratory Respiratory: No respiratory distress, Clear bilaterally - Abdomen Abdomen: Non tender - Rectal Rectal: Other (Tarry stool with a small amount of blood in the vault. No external hemorrhoid.) - Neuro Neuro: Alert and oriented X 3 Results - Vitals Vitals: Vital Signs - 24 hr 10/03/23 10/03/23 10/03/23 09:32 11:35 13:00 Temperature 36.0 C L Heart Rate 103 H 64 65 Respiratory 20 16 14 Rate Blood Pressure 163/93 H 142/82 H 142/100 H O2 Saturation 100 98 98 Oxygen O2 Source Room air - Labs Labs: Microbiology 10/03/23 09:47 Occult Blood - Final Stool Laboratory Tests 10/03/23 10/03/23 10/03/23 09:50 09:50 09:50 WBC 9.1 RBC 4.80 Hgb 14.8 Hct 44.8 MCV 93.3 MCH 30.8 MCHC 33.0 RDW 13.7 Plt Count 201 MPV 11.1 Neut # (Auto) Not Reportable Lymph # (Auto) Not Reportable [place] # (Auto) Not Reportable Eos # (Auto) Not Reportable Baso # (Auto) Not Reportable Absolute Nucleated RBC Not Reportable Total Counted 100 Band Neuts % (Manual) 0 Abnorm Lymph % (Manual) 0 Nucleated RBC % Not Reportable Neutrophils # (Manual) 6.9 H Lymphocytes # (Manual) 1.4 L Monocytes # (Manual) 0.5 Eosinophils # (Manual) 0.2 Basophils # (Manual) 0.2 H Differential Comment MANUAL DIFFERENTIAL Platelet Estimate NORMAL (130-450,000) Platelet Morphology NORMAL APPEARANCE RBC Morph Micro Appear NORMAL APPEARANCE PT 12.4 INR 1.1 Sodium Potassium Chloride Carbon Dioxide Anion Gap BUN Creatinine Estimated GFR (MDRD) Glucose Calcium Total Bilirubin AST ALT Alkaline Phosphatase Total Protein Albumin Globulin Albumin/Globulin Ratio Blood Type A NEGATIVE Blood Type Recheck Antibody Screen NEGATIVE 10/03/23 10/03/23 10/03/23 09:50 10:17 12:17 WBC RBC Hgb 13.4 L Hct 40.4 L MCV MCH MCHC RDW Plt Count MPV Neut # (Auto) Lymph # (Auto) [place] # (Auto) Eos # (Auto) Baso # (Auto) Absolute Nucleated RBC Total Counted Band Neuts % (Manual) Abnorm Lymph % (Manual) Nucleated RBC % Neutrophils # (Manual) Lymphocytes # (Manual) Monocytes # (Manual) Eosinophils # (Manual) Basophils # (Manual) Differential Comment Platelet Estimate Platelet Morphology RBC Morph Micro Appear PT INR Sodium 138 Potassium 4.2 Chloride 107 Carbon Dioxide 24 Anion Gap 7.0 BUN 22 H Creatinine 1.1 Estimated GFR (MDRD) 66 L Glucose 114 H Calcium 10.1 Total Bilirubin 0.5 AST 25 ALT 32 Alkaline Phosphatase 46 Total Protein 7.1 Albumin 4.1 Globulin 3.0 Albumin/Globulin Ratio 1.4 Blood Type Blood Type Recheck A NEGATIVE Antibody Screen - Rads (name of study) CTA abdomen without active hemorrhage, incidental findings including diverticula, cardiomegaly, coronary calcification, and small hepatic hypodensitie Relevant Findings:: Final report received, EMP independent interpretation of test PD Medical Decision Making - ED course ED course: 68-year-old gentleman with GI bleed. Source not quite clear but definitely having some tarry stools and he is on Xarelto. His hemodynamics and initial H&H were normal but repeat H&H after 2 hours without IV fluids did demonstrate a greater than 1 point drop. There was a delay to CT angiogram read but seems like he would be amenable to observation for serial H&H given the anticoagulated status and initial H&H drop. Spoke with hospitalist for admission at 2:09 PM. Departure - Departure Disposition: ED Place in Observation Clinical Impression: GI bleed, Chronic anticoagulation Condition: Stable Forms: PCP List
[2023-10-03 09:58] LABS: BASOPHILS % (AUTO) 0.8 %; EOSINOPHILS % (AUTO) 1.8 %; HCT - HEMATOCRIT 44.8 % (42.0-52.0); HGB - HEMOGLOBIN 14.8 g/dL (14.0-18.0); LYMPHOCYTES % (AUTO) 19.1 %; MEAN CORPUSCULAR HEMOGLOBIN 30.8 pg (27.0-31.0); MEAN CORPUSCULAR VOLUME 93.3 fL (80.0-94.0); MEAN PLATELET VOLUME 11.1 fL (7.4-11.4); MONOCYTES % (AUTO) 7.2 %; NEUTROPHILS % (AUTO) 70.8 %; PLT - PLATELET COUNT 201 10^3/uL (130-450); RED CELL DISTRIBUTION WIDTH 13.7 % (12.0-15.0); WHITE BLOOD COUNT 9.1 x10^3/uL (4.8-10.8)
[2023-10-03 10:04] LABS: INR 1.1 (0.8-1.2); PT - PROTHROMBIN TIME 12.4 secs (9.9-12.6)
[2023-10-03 10:05] LABS: ABNORMAL LYMPHS % (MANUAL) 0 %; BAND NEUTROPHILS % (MANUAL) 0 %
[2023-10-03 10:19] LABS: BASOPHILS # (MANUAL) 0.2 10^3/uL (0-0.1); BASOPHILS % (MANUAL) 2 %; DIFFERENTIAL COMMENT MANUAL DIFFERENTIAL; EOSINOPHILS # (MANUAL) 0.2 10^3/uL (0-0.7); LYMPHOCYTES # (MANUAL) 1.4 10^3/uL (1.5-3.5); LYMPHOCYTES % (MANUAL) 15 %; MONOCYTES # (MANUAL) 0.5 10^3/uL (0.0-1.0); NEUTROPHILS # (MANUAL) 6.9 10^3/uL (1.5-6.6); PLATELET ESTIMATE, MANUAL NORMAL (130-450,000) (NORMAL); PLATELET MORPHOLOGY NORMAL APPEARANCE (NORMAL); RBC MORPHOLOGY (MULTIPLE) NORMAL APPEARANCE (NORMAL)
[2023-10-03 10:32] LABS: ALBUMIN 4.1 g/dL (3.2-5.5); ALBUMIN/GLOBULIN RATIO 1.4 (1.0-2.2); BILIRUBIN,TOTAL 0.5 mg/dL (0.2-1.0); CALCIUM 10.1 mg/dL (8.5-10.3); CREATININE 1.1 mg/dL (0.6-1.3); POTASSIUM 4.2 mmol/L (3.5-4.5); TOTAL PROTEIN 7.1 g/dL (6.4-8.9)
[2023-10-03] MEDS ORDERED: iohexoL-300 100 ML VIAL ONE (11:32)
[2023-10-03 12:35] LABS: HCT - HEMATOCRIT 40.4 % (42.0-52.0); HGB - HEMOGLOBIN 13.4 g/dL (14.0-18.0)
[2023-10-03] MEDS: PANTOPRAZOLE 40 MG VIAL IVP STA (13:39)
--- NOTE | 2023-10-03 14:34 | CT Report ---
PROCEDURE: Angio Abdomen/Pelvis INDICATIONS: gi bleed CONTRAST: Omni 300 100ml TECHNIQUE: After the administration of intravenous contrast, 2.5 mm thick sections acquired from the diaphragm t o the symphysis. 10 mm maximum-intensity projection (MIP) reformats were then acquired. For radiati on dose reduction, the following was used: automated exposure control, adjustment of mA and/or kV ac cording to patient size. COMPARISON: None FINDINGS: Image quality: Excellent. Aorta: Mild to moderate calcification of the abdominal aorta and iliac vessels. No CT evidence of ac tive gastrointestinal hemorrhage. Mesenteric arteries: Celiac trunk, superior and inferior mesenteric arteries appear patent. Extravascular soft tissues: Lung bases demonstrate no suspicious pulmonary nodule or consolidation. D ependent atelectasis. Cardiomegaly. Partially visualized coronary vessel calcifications. Calcificatio n of the aortic valve. Liver is normal in size. Multiple subcentimeter hypodensities which are too sm all to characterize (29/23, 26, 31, 33). Spleen is normal in size and enhancement. Gallbladder is unr emarkable. Biliary system is non dilated. Pancreas enhances normally. No adrenal nodules. Kidneys are normal in size and enhancement, without hydronephrosis. Non opacified bowel loops are normal in wall thickness and caliber. Extensive colonic diverticulosis, without diverticulitis. Moderate amoun t of air in the rectum. No free fluid or air. No retroperitoneal or mesenteric adenopathy. No ventr al hernias. No suspicious bony lesions. No vertebral body compression fractures. Moderate prostato megaly. [id number] multilevel degenerative changes of the spine. IMPRESSION: 1.No CT evidence of active gastrointestinal hemorrhage. 2.No acute pathology in the abdomen or pelvis. Extensive colonic diverticulosis, without diverticulit is. Moderate amount of gas in the rectum. 3.Cardiomegaly. Calcification of the aortic valve. Coronary vessel calcifications. 4.Liver is normal in size with multiple subcentimeter hypodensities which are too small to characteri ze. Recommend a nonemergent right upper quadrant ultrasound for further evaluation. Reviewed by: La Blanton MD on 10/03/2023 2:32 PM PDT Approved by: La Blanton MD on 10/03/2023 2:32 PM PDT Station ID: [id number]
[2023-10-03] MEDS: iohexoL-300 100 ML VIAL IVP ONE (14:51)
[2023-10-03] MEDS ORDERED: SODIUM CHLORIDE FLUSH 0.9% 10 ML SYRINGE IVP PRN (14:52)
[2023-10-03] MEDS ORDERED: ACETAMINOPHEN 325 MG TABLET PO PRN (14:52)
[2023-10-03] MEDS ORDERED: ONDANSETRON ODT 4 MG TABLET TL PRN (14:52)
[2023-10-03] MEDS ORDERED: HYDROcod/ACETAM 5/325 MG TABLET PO PRN (14:52)
--- NOTE | 2023-10-03 15:07 | HISTORY & PHYSICAL EXAMINATION ---
Chief Complaint - Chief Complaint Chief Complaint: Dark stool History of Present Illness - Admitted From Admitted From:: ED, came from home - History Obtained From Records Reviewed: yes History obtained from: patient and ED provider Exam Limitations: no - History of Present Illness HPI Comment/Other: A 68yo M with hx of Afib on Xarelto (for 3 yrs, follows cardiology Dr. Shaffer from [facility]), hx of gastric ulcer 20yrs ago, RSV infection (06/2022, was given omeprazol by outpatient admitting clerk. Presented to the ED after one episode of dark stool with blood cover on surface, no similar episode before, no dizziness or lightheaded, no palpitation. Patient has intentional weight loss of 28 pounds in the last year by diet modification. Patient last colonoscopy was 10 years ago which was unremarkable, patient has scheduled colonoscopy in May 2024. In the ED, VSS, labs shows Hb 14.8-->13.4. CTA abdomen pelvis has not active bleeding noted. Extensive colonic diverticulosis without diverticulitis. Moderate amount of gas in the rectum. Cardiomegaly. Coronary vessel calcification. Liver is normal in size with multiple sub-6 cm hypodensity which are too small to characterize recommend unknown emergent right upper quadrant ultrasound for further evaluation. ED provider consulted with acquisition marketing manager surgery, who recommends observation under medical service. History - Past Medical History Cardiovascular: reports: Hypertension, Atrial fibrillation, Other Respiratory: reports: COPD, Pneumonia, Sleep apnea Endocrine/Autoimmune: reports: None GI: reports: Colon polyps, Chronic diarrhea, Other : reports: None HEENT: reports: Chronic vision loss, Chronic sinusitis Psych: reports: None Musculoskeletal: reports: None Derm: reports: Psoriasis MRSA Hx?: Yes - Past Surgical History General: reports: Appendectomy, Colonoscopy Cardiovascular: reports: Other HEENT: reports: Other Derm: reports: Skin cancer surgery - POLST Patient has POLST: No Meds/Allgy - Home Medications Home Medications: Ambulatory Orders Medication Instructions Recorded Confirmed Atorvastatin Calcium 40 mg PO HS 10/03/23 10/03/23 Gabapentin [Neurontin] 100 mg PO HS 10/03/23 10/03/23 Losartan Potassium 100 mg PO DAILY 10/03/23 10/03/23 Magnesium Oxide 400 mg PO BID 10/03/23 10/03/23 Metoprolol Succinate [Toprol Xl] 25 mg PO DAILY 10/03/23 10/03/23 Montelukast [Singulair] 10 mg PO DAILY 10/03/23 10/03/23 Potassium Chloride 10 meq PO BID 10/03/23 10/03/23 Rivaroxaban [Xarelto] 20 mg PO HS 10/03/23 10/03/23 - Allergies Allergies/Adverse Reactions: Allergies Allergy/AdvReac Type Severity Reaction Status Date / Time Sulfa (Sulfonamide Allergy Rash Verified 10/03/23 09:36 Antibiotics) Review of Systems - Constitutional Constitutional: reports: Weight loss (Intentional). denies: Weakness, Diaphoresis - Eyes Eyes: denies: Vision loss, Dipolpia - Cardiovascular Cariovascular: denies: Chest pain, Lightheadedness, Syncope, Exertional dyspnea - Respiratory Respiratory: denies: Sputum production, Wheezing - Gastrointestinal Gastrointestinal: reports: Black stools, Bloody stools. denies: Abdominal pain, Abdominal distention, Change in bowel habits, Nausea, Vomiting - Genitourinary Genitourinary: denies: Dysuria, Frequency - Musculoskeletal Musculoskeletal: denies: Back pain, Stiffness - Neurological Neurological: denies: General weakness, Focal weakness - Psychiatric Psychiatric: denies: Anxiety, Hallucinations - Endocrine Endocrine: denies: Polyuria, Polydypsia Prior Level of Functionality: Independent ADLs, lives alone cooks for himself Exam - Vital Signs Vital Signs: Vital Signs x48h Temp Pulse Resp BP Pulse Ox 10/03/23 13:00 65 14 142/100 H 98 10/03/23 11:35 64 16 142/82 H 98 10/03/23 09:32 36.0 C L 103 H 20 163/93 H 100 - Physical Exam General Appearance: positive: No acute distress, Alert Eyes Bilateral: positive: PERRL, EOMI Neck: positive: No JVD Respiratory: positive: No respiratory distress. negative: Wheezes, Rales Cardiovascular: positive: Irregularly irregular Abdomen: positive: Non-tender, Nml bowel sounds. negative: Guarding, Rebound Skin: positive: Warm, Dry Extremities: positive: Full ROM, No pedal edema. negative: Pedal edema Neurologic/Psychiatric: positive: Oriented x3, CN's nml (2-12) Sepsis Event Note (H) - Evaluation Current Stage of Sepsis: Ruled out Conclusion/Plan - Problem List (1) GI bleed Conclusion/Plan: Dark Stool, FOBT pos Hb 14.8-->13.4 on chronic anticoagulant -monitoring Hb -surgical is on treatment team, EGD as needed -If Hb<10, will transfuse -NPO at this point -iv protonix 40mg bid observe 24-48 hours (2) Atrial fibrillation Conclusion/Plan: Hold Xarelto continue with metoprolol for rate control Qualifiers: Atrial fibrillation type: paroxysmal Qualified Code(s): I48.0 - Paroxysmal atrial fibrillation (3) HTN (hypertension) Conclusion/Plan: continue with losartan, metoprolol - Lab Results Lab results reviewed: Yes Fish Bones: 10/03/23 12:17 10/03/23 09:50 - Diagnostic Imaging Results Diagnostic Imaging Results: positive: Final report reviewed
[2023-10-03] MEDS: DEXTROSE 5%-0.9% NACL 1,000 ML IV SCH (15:32)
--- NOTE | 2023-10-03 16:40 | PHARMACY PROGRESS NOTE ---
- Best Possible Medication History Admit Date and Time: 10/03/23 1454 Processed by: Pharmacy Medications reviewed in ED?: Yes Medication History completed: Yes Patient Interview: Completed Secondary Source(s): Insurance records As the person ultimately responsible for medication therapy, providers are able to order a medication from an existing home medication list in [facility] via the "Reconcile Routine" prior to Confirmation of that medication by systems support officer. Such practice is discouraged except when the physician, in their clinical judgment, deems that a medical need exists for a medication without regard to previous use.
[2023-10-03 17:11] LABS: HCT - HEMATOCRIT 41.3 % (42.0-52.0); HGB - HEMOGLOBIN 13.7 g/dL (14.0-18.0)
[2023-10-03] MEDS: GABAPENTIN 100 MG CAPSULE PO SCH (19:12)
[2023-10-03] MEDS: SODIUM CHLORIDE FLUSH 0.9% 10 ML SYRINGE IVP SCH (19:18)
[2023-10-03 21:05] LABS: HGB - HEMOGLOBIN 13.5 g/dL (14.0-18.0)
[2023-10-03] MEDS: MONTELUKAST 10 MG TABLET PO SCH (21:34)
[2023-10-03] MEDS: PANTOPRAZOLE 40 MG VIAL IV SCH (21:35)
[2023-10-04 05:30] LABS: BASOPHILS # (AUTO) 0.1 10^3/uL (0.0-0.1); BASOPHILS % (AUTO) 0.8 %; EOSINOPHILS # (AUTO) 0.3 10^3/uL (0.0-0.7); EOSINOPHILS % (AUTO) 3.6 %; HCT - HEMATOCRIT 41.9 % (42.0-52.0); HGB - HEMOGLOBIN 13.9 g/dL (14.0-18.0); LYMPHOCYTES # (AUTO) 2.1 10^3/uL (1.5-3.5); MEAN CORPUSCULAR HGB CONC 33.2 g/dL (32.0-36.0); MEAN CORPUSCULAR VOLUME 93.3 fL (80.0-94.0); MEAN PLATELET VOLUME 10.9 fL (7.4-11.4); MONOCYTES # (AUTO) 0.6 10^3/uL (0.0-1.0); MONOCYTES % (AUTO) 7.2 %; NEUTROPHILS # (AUTO) 5.7 10^3/uL (1.5-6.6); NEUTROPHILS % (AUTO) 64.2 %; PLT - PLATELET COUNT 191 10^3/uL (130-450); RED BLOOD COUNT 4.49 10^6/uL (4.70-6.10); RED CELL DISTRIBUTION WIDTH 13.7 % (12.0-15.0); WHITE BLOOD COUNT 8.9 x10^3/uL (4.8-10.8)
[2023-10-04 05:50] LABS: POTASSIUM 3.9 mmol/L (3.5-4.5)
[2023-10-04] MEDS: LOSARTAN 50 MG TABLET PO SCH (10:24)
[2023-10-04] MEDS: ATORVASTATIN 40 MG TABLET PO SCH (10:25)
[2023-10-04] MEDS: METOPROLOL SUCCINATE 25 MG TABLET PO SCH (10:25)
[2023-10-04 16:52] LABS: HCT - HEMATOCRIT 41.4 % (42.0-52.0); HGB - HEMOGLOBIN 13.9 g/dL (14.0-18.0)
--- NOTE | 2023-10-04 17:23 | Discharge Plan ---
Discharge Plan Problem Reviewed?: Yes Disposition: Home, Self Care Condition: Stable Prescriptions: Pantoprazole [Protonix] 40 mg PO QDAC 30 Days #30 tab Diet: Soft Activity Restrictions: No Restrictions Shower Restrictions: No Driving Restrictions: No Weight Bearing: Full Weight Instruction Topics: ED Bleed UGI Stable Health Concerns: You had dark stool, occult blood positive. It may be related to your blood thinner use. Your Hemoglobin has been stable at 13.9 you were given Protonix during hospital stay. Please continue taking it for one month. You can resume your blood thinner tomorrow. If you have more dark stool, please talk to your supervisor color paste mixing, to see if any alternative blood thinner can be used Please have your colonscopy as scheduled, please follow up with your PCP for liver US test. Plan of Treatment: continue protonix 40mg daily for 30 days Care Goals: No further dark stool Assessment: medically stable for discharge No Smoking: If you smoke, Please STOP! Call for help.
--- NOTE | 2023-10-04 17:35 | DISCHARGE SUMMARY ---
"Discharge Summary Admit Date: 10/03/23 Discharge Date: 10/04/23 Discharging Provider: Antony Thompson Code Status: Attempt Resuscitation Condition at Discharge: Stable Discharge Disposition: 01 Home, Self Care - DIAGNOSES Admission Diagnoses: GI bleed Discharge Diagnoses with Status of Each Condition: GI bleed, stable - HPI History of Present Illness: A 68yo M with hx of Afib on Xarelto (for 3 yrs, follows cardiology Dr. Shaffer from [facility]), hx of gastric ulcer 20yrs ago, RSV infection (06/2022, was given omeprazol by human machine interface engineer. Presented to the ED after one episode of dark stool with blood cover on surface, no similar episode before, no dizziness or lightheaded, no palpitation. Patient has intentional weight loss of 28 pounds in the last year by diet modification. Patient last colonoscopy was 10 years ago which was unremarkable, patient has scheduled colonoscopy in May 2024. In the ED, VSS, labs shows Hb 14.8-->13.4. CTA abdomen pelvis has not active bleeding noted. Extensive colonic diverticulosis without diverticulitis. Moderate amount of gas in the rectum. Cardiomegaly. Coronary vessel calcification. Liver is normal in size with multiple sub-6 cm hypodensity which are too small to characterize recommend unknown emergent right upper quadrant ultrasound for further evaluation. ED provider consulted with vp organizational development surgery, who recommends observation under medical service. - CONSULTS | PROCEDURES Consultations: discussed with vp organizational development surgeon - HOSPITAL COURSE Hospital Course: after admission, patient was given protonix 40mg iv bid, with every 6 hour H&H monitoring. patient's Hb has been stable at 14.9, had bowel movement once, stool color is manager oracle. No abdominal pain, tolerate diet well. No further discomfort reported. Patient is discharged to home in stable condition, recommends patient continue taking protonix, can resume xarelto the next day (holding xarelto for total 3 days), recommends patient to follow up with his refrigeration engineering teacher regarding the choice of blood thinner if dark stool occurs again. Recommends patient to follow up with PCP for liver US test - ALLERGIES Allergies/Adverse Reactions: Allergies Allergy/AdvReac Type Severity Reaction Status Date / Time Sulfa (Sulfonamide Allergy Rash Verified 10/03/23 09:36 Antibiotics) - MEDICATIONS Home Medications: Ambulatory Orders Medication Instructions Recorded Confirmed Atorvastatin Calcium 40 mg PO HS 10/03/23 10/03/23 Gabapentin [Neurontin] 100 mg PO HS 10/03/23 10/03/23 Losartan Potassium 100 mg PO DAILY 10/03/23 10/03/23 Magnesium Oxide 400 mg PO BID 10/03/23 10/03/23 Metoprolol Succinate [Toprol Xl] 25 mg PO DAILY 10/03/23 10/03/23 Montelukast [Singulair] 10 mg PO DAILY 10/03/23 10/03/23 Potassium Chloride 10 meq PO BID 10/03/23 10/03/23 Rivaroxaban [Xarelto] 20 mg PO HS 10/03/23 10/03/23 Pantoprazole [Protonix] 40 mg PO QDAC 30 Days #30 tab 10/04/23 - PHYSICAL EXAM AT DISCHARGE General Appearance: positive: No acute distress, Alert Eyes Bilateral: positive: PERRL, EOMI Neck: positive: No JVD Respiratory: positive: Chest non-tender, No respiratory distress Cardiovascular: positive: No murmur, No gallop Abdomen: positive: Non-tender, Nml bowel sounds, No distention Neurologic/Psychiatric: positive: Oriented x3, CN's nml (2-12) - LABS Result Diagrams: 10/04/23 16:46 10/04/23 05:09 - SEPSIS Current Stage of Sepsis: Ruled out - FOLLOW UP Follow Up: Dr. Bari Harkins - TIME SPENT Time Spent in Discharge (Minutes): 35"
[2023-10-04 18:23] VITALS: BP 122/65; O2SAT 97
[2023-10-05] MEDS ORDERED: PANTOPRAZOLE 40 MG TABLET PO SCH (07:00)
== END 2023-10-04 18:29 | disposition home or self-care (01) ==
LOC: ED 09:23 → MS2 14:52
PROVIDERS: ADMIT Internal Medicine; ATTEND Internal Medicine
DX: K92.1 Melena (principal); I48.0 Paroxysmal atrial fibrillation; I10 Essential (primary) hypertension; J44.9 Chronic obstructive pulmonary disease, unspecified; F17.200 Nicotine dependence, unspecified, uncomplicated; Z79.01 Long term (current) use of anticoagulants; Z79.899 Other long term (current) drug therapy; Z86.010 Personal history of colon polyps; Z87.19 Personal history of other diseases of the digestive system
CPT/HCPCS: 36415; 74174; 80048; 80053; 82272; 85014; 85018; 85025; 85610; 86850; 86900; 86901; 96361; 96374; 96376; 99285; A9270; G0378; Q9967

== ENCOUNTER 2023-10-20 07:15 | Outpatient (CLI) | payer MEDICARE ==
--- NOTE | 2023-10-22 00:46 | Ultrasound Report ---
PROCEDURE: Abdomen Limited INDICATIONS: LIVER LESION TECHNIQUE: Real-time focused scanning was performed of the abdomen, with image documentation. COMPARISONS: CTA abdomen/pelvis 10/03/2023. FINDINGS: Liver: Liver is normal in size and homogeneous in echotexture. Previously seen subcentimeter hypoden sities on CT from 10/03/2023 are not visualized sonographically. Gallbladder: No gallstones, sludge, wall thickening or pericholecystic edema. Biliary ducts: Intrahepatic bile ducts are non-dilated. Extrahepatic bile duct caliber measures 4 m m. Normal is 6-7 mm or less in diameter, or 10 mm or less post-cholecystectomy. Pancreas: Visualized portions of the pancreas are sonographically normal. Right kidney: Normal in size and echotexture. Right kidney measures 10.8 cm long. No hydronephrosis or nephrolithiasis. No solid masses. No complex renal cystic lesions which require follow-up. IVC: Intrahepatic inferior vena cava is patent. Miscellaneous: No free abdominal fluid. IMPRESSION: No focal hepatic lesion is seen sonographically. Previously seen hypoattenuating liver lesions on CT from 10/03/2023 are not visualized on the current exam. Reviewed by: Carlos Garcia MD on 10/22/2023 12:45 AM PDT Approved by: Carlos Garcia MD on 10/22/2023 12:45 AM PDT Station ID: [id number]
== END 2023-10-20 07:16 | disposition home or self-care (01) ==
LOC: DI 07:15
PROVIDERS: ATTEND Family Medicine
DX: K76.9 Liver disease, unspecified (principal)

== ENCOUNTER 2023-10-23 10:22 | Emergency (ER) | payer MEDICARE ==
[2023-10-23 10:51] VITALS: O2SAT 100
--- NOTE | 2023-10-23 11:05 | ED Physician Documentation ---
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 Patient said that he was at home doing his physical therapy exercises And started doing some crunches and started to experience some dizziness and cold sweats. He said that as soon as he sat up in his chair the dizziness resolved he says he feels slightly off now but for the most part feels better. Patient denies any chest pain or shortness of breath and no neurological changes while this is happening. He also says that he normally receives his Xarelto via mail order and needs a couple days late on his Xarelto because he did not receive his Xarelto medication yet. PD PAST MEDICAL HISTORY - Past Medical History Past Medical History: Yes Cardiovascular: Hypertension, Atrial fibrillation, Other Respiratory: COPD, Pneumonia, Sleep apnea Neuro: None Endocrine/Autoimmune: None GI: Colon polyps, Chronic diarrhea, Other : None HEENT: Chronic vision loss, Chronic sinusitis Psych: None Musculoskeletal: None Derm: Psoriasis - Past Surgical History Past Surgical History: Yes General: Appendectomy, Colonoscopy Cardiovascular: Other HEENT: Other Derm: Skin cancer surgery - Present Medications Home Medications: Ambulatory Orders Medication Instructions Recorded Confirmed Atorvastatin Calcium 40 mg PO HS 10/03/23 10/23/23 Gabapentin [Neurontin] 100 mg PO HS 10/03/23 10/23/23 Losartan Potassium 100 mg PO DAILY 10/03/23 10/23/23 Magnesium Oxide 400 mg PO BID 10/03/23 10/23/23 Metoprolol Succinate [Toprol Xl] 25 mg PO DAILY 10/03/23 10/23/23 Montelukast [Singulair] 10 mg PO DAILY 10/03/23 10/23/23 Potassium Chloride 10 meq PO BID 10/03/23 10/23/23 Rivaroxaban [Xarelto] 20 mg PO HS 10/03/23 10/23/23 Pantoprazole [Protonix] 40 mg PO QDAC 30 Days #30 tab 10/04/23 10/23/23 Rivaroxaban [Xarelto] 20 mg PO DAILY 10 Days #10 tablet 10/23/23 - Allergies Allergies/Adverse Reactions: Allergies Allergy/AdvReac Type Severity Reaction Status Date / Time Sulfa (Sulfonamide Allergy Rash Verified 10/23/23 11:02 Antibiotics) - Social History Does the pt smoke?: No Smoking Status: Never smoker Does the pt drink ETOH?: Yes Does the pt have substance abuse?: No - Immunizations Immunizations are current?: Yes - POLST Patient has POLST: No PD ED PE NORMAL - Vitals Vital signs reviewed: Yes - General General: Alert and oriented X 3, No acute distress, Well developed/nourished - HEENT HEENT: Atraumatic. No: Moist mucous membranes - Neck Neck: No JVD - Cardiac Cardiac: Other (Irregularly irregular) - Respiratory Respiratory: No respiratory distress, Clear bilaterally - Extremities Extremities: No edema, No calf tenderness / cord - Neuro Neuro: Alert and oriented X 3, netezza developer 2-12 intact, No motor deficit, No sensory deficit, Normal speech, Other (chronich left facial palsy ) Eye Opening: Spontaneous Motor: Obeys Commands Verbal: Oriented GCS Score: 15 Results - Vitals Vitals: Vital Signs - 24 hr 10/23/23 10/23/23 10/23/23 10:38 12:42 13:43 Temperature 36.3 C L Heart Rate 64 57 L 62 Respiratory 16 16 16 Rate Blood Pressure 154/80 H 158/91 H 157/77 H O2 Saturation 100 100 100 10/23/23 15:03 Temperature 36.0 C L Heart Rate 61 Respiratory 16 Rate Blood Pressure 169/78 H O2 Saturation 100 Oxygen O2 Source Room air - EKG (time done) 1047 EKG releavant findings:: EKG personally interpreted by author of this note. Relevant findings are: Rate: Rate (enter#) (65) Rhythm: Atrial fibrillation [place]: LAD QRS: Normal Ischemia: Other (ST depression at the inferior lateral leads) - Labs Labs: Laboratory Tests 10/23/23 10/23/23 10/23/23 11:00 11:02 11:02 WBC 7.7 RBC 4.50 L Hgb 13.8 L Hct 42.0 MCV 93.3 MCH 30.7 MCHC 32.9 RDW 13.5 Plt Count 176 MPV 11.5 H Neut # (Auto) 5.4 Lymph # (Auto) 1.6 Brantley # (Auto) 0.5 Eos # (Auto) 0.1 Baso # (Auto) 0.1 Absolute Nucleated RBC 0.00 Nucleated RBC % 0.0 D-Dimer < 200.0 L Sodium 138 Potassium 4.0 Chloride 108 Carbon Dioxide 23 Anion Gap 7.0 BUN 19 Creatinine 1.0 Estimated GFR (MDRD) 74 L Glucose 119 H Calcium 9.4 Total Bilirubin 0.6 AST 21 ALT 28 Alkaline Phosphatase 44 Troponin I High Sens 22.6 H* Total Protein 6.6 Albumin 4.0 Globulin 2.6 Albumin/Globulin Ratio 1.5 Lipase 27 10/23/23 13:28 WBC RBC Hgb Hct MCV MCH MCHC RDW Plt Count MPV Neut # (Auto) Lymph # (Auto) [place] # (Auto) Eos # (Auto) Baso # (Auto) Absolute Nucleated RBC Nucleated RBC % D-Dimer Sodium Potassium Chloride Carbon Dioxide Anion Gap BUN Creatinine Estimated GFR (MDRD) Glucose Calcium Total Bilirubin AST ALT Alkaline Phosphatase Troponin I High Sens 21.8 H* Total Protein Albumin Globulin Albumin/Globulin Ratio Lipase - Rads (name of study) Chest x-ray Relevant Findings:: Final report received, EMP independent interpretation of test, Other (Limited view without obvious acute cardiopulmonary abnormalities) PD Medical Decision Making - ED course ED course: 68-year-old male presents emergency department for an episode of dizziness with cold sweats that lasted about 3 to 4 minutes at home. I had the patient do the exercises here that he was doing at home that originally elicited the symptoms he was experiencing and patient was unable to have any recurring symptoms here of dizziness or cold sweats. His EKG does not show any major abnormalities or findings mostly just PVCs he did have a run of V. tach for about 6 beats as well but he remained completely asymptomatic during that episode here. His initial troponin came back very slightly elevated initially at 22.6 and repeat troponin came back at 21.8 which is downtrending negative delta. D-dimer was also complete as patient does report that he missed a couple days of his Xarelto and his D-dimer was found to also be negative. Chest x-ray was also complete no acute cardiopulmonary abnormalities or findings at this point in time. I am not entirely sure what is caused the patient to have an episode of dizziness or cold sweats he does have a heart score of about 5 because of this I reached out to his on-call cardiology team [facility] cardiology I was unable to get a hold of his primary pool manager Dr. Conte but was able to speak with another pool manager on-call who advised the patient to follow-up outpatient for further evaluation and does not believe that patient needs to be admitted for any further workup at this point in time. Patient was told to call Dr. Conte's office to make an appointment and let them know about today's ER visit as soon as possible and given very strict ER return precautions. He said he is unsure if his Xarelto has arrived to his house via mail order yet and so to err on side of caution I went ahead and ordered a Xarelto refill for about 10 days to get him through till whenever his prescription gets here. All questions were answered teach back demonstrates patient understands discharge teaching and return precautions at this point in time I do believe that patient is safe for discharge. Departure - Departure Disposition: 01 Home, Self Care Clinical Impression: Dizziness Instructions: ED Dizziness [facility]O Prescriptions: Rivaroxaban [Xarelto] 20 mg PO DAILY 10 Days #10 tablet Comments: Thank you for trusting us with your care. I am not entirely sure what caused the episode of dizziness with cold sweats that you had today while doing at home physical therapy stretches and exercises. As we discussed I did speak with your on-call pool manager who says to follow-up with them outpatient as soon as possible and report back to the emergency department if the symptoms recur. Please call your mail order pharmacy to see if they have been able to get your prescription sent out to you as well as your mailbox to see if it is already there. I have sent a prescription of Xarelto to [facility] in [place] if it is not here yet for you to take the first dose today. Forms: PCP List Discharge Date/Time: 10/23/23 15:05
[2023-10-23 11:07] LABS: BASOPHILS # (AUTO) 0.1 10^3/uL (0.0-0.1); BASOPHILS % (AUTO) 0.8 %; EOSINOPHILS # (AUTO) 0.1 10^3/uL (0.0-0.7); EOSINOPHILS % (AUTO) 1.7 %; HGB - HEMOGLOBIN 13.8 g/dL (14.0-18.0); LYMPHOCYTES # (AUTO) 1.6 10^3/uL (1.5-3.5); LYMPHOCYTES % (AUTO) 20.9 %; MEAN CORPUSCULAR HEMOGLOBIN 30.7 pg (27.0-31.0); MEAN CORPUSCULAR HGB CONC 32.9 g/dL (32.0-36.0); MEAN CORPUSCULAR VOLUME 93.3 fL (80.0-94.0); MEAN PLATELET VOLUME 11.5 fL (7.4-11.4); MONOCYTES # (AUTO) 0.5 10^3/uL (0.0-1.0); MONOCYTES % (AUTO) 6.8 %; NEUTROPHILS # (AUTO) 5.4 10^3/uL (1.5-6.6); NEUTROPHILS % (AUTO) 69.5 %; PLT - PLATELET COUNT 176 10^3/uL (130-450); RED CELL DISTRIBUTION WIDTH 13.5 % (12.0-15.0); WHITE BLOOD COUNT 7.7 x10^3/uL (4.8-10.8)
[2023-10-23 11:22] LABS: ALBUMIN/GLOBULIN RATIO 1.5 (1.0-2.2); BILIRUBIN,TOTAL 0.6 mg/dL (0.2-1.0); CALCIUM 9.4 mg/dL (8.5-10.3); TOTAL PROTEIN 6.6 g/dL (6.4-8.9)
[2023-10-23] MEDS: SODIUM CHLORIDE 0.9% 1,000 ML IV ONE (11:32)
[2023-10-23 11:34] LABS: TROPONIN I HIGH SENSITIVITY 22.6 ng/L (2.3-19.7)
--- NOTE | 2023-10-23 11:39 | XRAY Report ---
PROCEDURE: Chest 1V INDICATIONS: Chest pain TECHNIQUE: One view of the chest was acquired. COMPARISON: 07/24/2022 FINDINGS: Surgical changes and devices: None. Lungs and pleura: No dense consolidation or pleural effusion. Mediastinum: Normal heart size. Unchanged cardiac mediastinal contours Bones and chest wall: Unremarkable IMPRESSION: Limited single view portable radiograph without acute abnormality. Reviewed by: Chris Burris MD on 10/23/2023 11:37 AM PDT Approved by: Chris Burris MD on 10/23/2023 11:37 AM PDT Station ID: [id number]
[2023-10-23 15:06] VITALS: BP 169/78
== END 2023-10-23 15:05 | disposition home or self-care (01) ==
LOC: ED 10:22
DX: R42 Dizziness and giddiness (principal); I10 Essential (primary) hypertension; I48.91 Unspecified atrial fibrillation; J44.9 Chronic obstructive pulmonary disease, unspecified; Z79.899 Other long term (current) drug therapy; Z79.01 Long term (current) use of anticoagulants
CPT/HCPCS: 36415; 80053; 83690; 84484; 85025; 85379; 93005; 99284

== ENCOUNTER 2024-01-04 08:03 | Day surgery (SDC) | payer MEDICARE ==
[2024-01-04] MEDS: LACTATED RINGERS 1,000 ML IV ONE ×2 (08:37→10:28)
--- NOTE | 2024-01-04 08:40 | ANESTHESIA ---
Pre-Anesthesia VS, & Labs - Diagnosis screening - Procedure colonoscopy Vital Signs: Temp Pulse Resp BP Pulse Ox O2 Flow Rate 36.7 C 72 19 123/84 H 97 01/04/24 08:23 01/04/24 08:23 01/04/24 08:23 01/04/24 08:23 01/04/24 08:23 Height: 6 ft 3 in Weight (kg): 101 kg Body Mass Index: 27.8 BMI Classification: Overweight - NPO Other (prep as directed) Home Medications and Allergies Home Medications: Ambulatory Orders Albuterol Oral Soln [Ventolin] 2 mg PO Q6H PRN 01/02/24 Albuterol Sulf [Ventolin Hfa Inhaler] 1 - 2 puffs INH Q4HR PRN 01/02/24 Atorvastatin Calcium 40 mg PO HS 10/03/23 Gabapentin [Neurontin] 100 mg PO HS 10/03/23 Losartan Potassium 100 mg PO DAILY 10/03/23 Magnesium Oxide 400 mg PO BID 10/03/23 Metoprolol Succinate [Toprol Xl] 25 mg PO DAILY 10/03/23 Montelukast [Singulair] 10 mg PO DAILY 10/03/23 Potassium Chloride 10 meq PO BID 10/03/23 Rivaroxaban [Xarelto] 20 mg PO HS 10/03/23 Albuterol Oral Soln [Ventolin] 2 mg PO Q6H PRN 01/02/24 Albuterol Sulf [Ventolin Hfa Inhaler] 1 - 2 puffs INH Q4HR PRN 01/02/24 Allergies/Adverse Reactions: Allergies Allergy/AdvReac Type Severity Reaction Status Date / Time Sulfa (Sulfonamide Allergy Rash Verified 10/23/23 11:02 Antibiotics) Anes History & Medical History - Anesthetic History Anesthesia Complications: reports: No previous complications - Medical History Cardiovascular: reports: Hypertension, Atrial fibrillation, Other Pulmonary: reports: Asthma, COPD, Pneumonia, Sleep apnea Gastrointestinal: reports: GERD, Colon polyps, Chronic diarrhea, Other Urinary: reports: None Neuro: reports: None Musculoskeletal: reports: Osteoarthritis Endocrine/Autoimmune: reports: None Blood Disorders: reports: None Skin: reports: Psoriasis Smoking Status: Never smoker - Surgical History General: reports: Appendectomy, Colonoscopy Eyes Ears Nose Throat (EENT): reports: Other Cardiothoracic: reports: Other Dermatologic: reports: Skin cancer surgery Exam General: Alert, Oriented x3 Dental: WNL Mouth Opening: Greater than 4 Fingerbreadths Neck Mobility: Normal Mallampati classification: III Thyromental Distance: greater than 6 cm Respiratory: Lungs clear Cardiovascular: Regular rate (currently in SR) Plan Anesthesia Type: Total IV Consent for Procedure(s) Verified and Reviewed: Yes Code Status: Attempt Resuscitation ASA classification: 3-Severe systemic disease Is this case an emergency?: No
[2024-01-04] MEDS ORDERED: LIDOCAINE-PF 2% 10 ML AMP SUBQ ONE (08:44)
[2024-01-04] MEDS ORDERED: PROPOFOL 500 MG/50 ML 500 MG/50 ML VIAL ONE (08:44)
--- NOTE | 2024-01-04 09:11 | HISTORY & PHYSICAL EXAMINATION ---
Chief Complaint - Chief Complaint Chief Complaint: here for colonoscopy History of Present Illness - History Obtained From Records Reviewed: yes History obtained from: pt Exam Limitations: none - History of Present Illness HPI Comment/Other: here for colonoscopy. no gi symptoms. last colonoscopy over 10 years ago History - Past Medical History Cardiovascular: reports: Hypertension, Atrial fibrillation, Other Respiratory: reports: Asthma, COPD, Pneumonia, Sleep apnea Neuro: reports: None Endocrine/Autoimmune: reports: None GI: reports: GERD, Colon polyps, Chronic diarrhea, Other : reports: None HEENT: reports: Chronic vision loss, Chronic sinusitis Psych: reports: ADD/ADHD Musculoskeletal: reports: Osteoarthritis Derm: reports: Psoriasis MRSA Hx?: Yes - Past Surgical History General: reports: Appendectomy, Colonoscopy Cardiovascular: reports: Other HEENT: reports: Other Derm: reports: Skin cancer surgery - POLST Patient has POLST: No Meds/Allgy - Home Medications Home Medications: Ambulatory Orders Medication Instructions Recorded Confirmed Atorvastatin Calcium 40 mg PO HS 10/03/23 01/02/24 Gabapentin [Neurontin] 100 mg PO HS 10/03/23 01/04/24 Losartan Potassium 100 mg PO DAILY 10/03/23 01/04/24 Magnesium Oxide 400 mg PO BID 10/03/23 01/02/24 Metoprolol Succinate [Toprol Xl] 25 mg PO DAILY 10/03/23 01/04/24 Montelukast [Singulair] 10 mg PO DAILY 10/03/23 01/04/24 Potassium Chloride 10 meq PO BID 10/03/23 01/02/24 Rivaroxaban [Xarelto] 20 mg PO HS 10/03/23 01/02/24 Pantoprazole [Protonix] 40 mg PO QDAC 30 Days #30 tab 10/04/23 01/02/24 Albuterol Oral Soln [Ventolin] 2 mg PO Q6H PRN 01/02/24 01/04/24 Albuterol Sulf [Ventolin Hfa 1 - 2 puffs INH Q4HR PRN 01/02/24 01/02/24 Inhaler] - Allergies Allergies/Adverse Reactions: Allergies Allergy/AdvReac Type Severity Reaction Status Date / Time Sulfa (Sulfonamide Allergy Rash Verified 10/23/23 11:02 Antibiotics) Review of Systems - Other Findings Other Findings: 10 pt ros as above otherwise unremarkable Exam - Vital Signs Vital Signs: Vital Signs x48h Temp Pulse Resp BP Pulse Ox 01/04/24 08:23 36.7 C 72 19 123/84 H 97 - Physical Exam General Appearance: positive: No acute distress, Alert Eyes Bilateral: positive: PERRL, EOMI ENT: positive: No signs of dehydration Neck: positive: No JVD Respiratory: positive: No respiratory distress Cardiovascular: positive: Irregularly irregular Abdomen: positive: No distention Neurologic/Psychiatric: positive: Oriented x3 Conclusion/Plan - Problem List (1) Colon cancer screening Conclusion/Plan: plan colonoscopy. parq held and consent obtained
[2024-01-04] MEDS ORDERED: PROPOFOL 200 MG/20 ML VIAL IVP ONE ×3 (09:46→10:13)
[2024-01-04 10:55] VITALS: BP 112/67; O2SAT 100
--- NOTE | 2024-01-04 13:55 | ANESTHESIA POST OP EVALUATION ---
Anesthesia Post Eval - Post Anesthesia Eval Vitals: Last Vital Signs Temp 37.1 C 01/04/24 10:28 Pulse 62 01/04/24 10:47 Resp 19 01/04/24 10:47 BP 112/67 01/04/24 10:47 Pulse Ox 100 01/04/24 10:47 O2 Flow Rate CV Function Including HR & BP: Stable Pain Control: Satisfactory Nausea & Vomiting: Negative Mental Status: Baseline Respiratory Status: Airway Patent Hydration Status: Satisfactory Anesthesia Complications: None
== END 2024-01-04 08:04 | disposition home or self-care (01) ==
LOC: SDS 08:03
PROVIDERS: ATTEND Surgery
PROC: 0DBH8ZZ Excision of Cecum, Via Natural or Artificial Opening Endoscopic (ICD-10-PCS; 2024-01-04)
PROC: 0DBK8ZZ Excision of Ascending Colon, Via Natural or Artificial Opening Endoscopic (ICD-10-PCS; principal; 2024-01-04 09:30)
DX: Z12.11 Encounter for screening for malignant neoplasm of colon (principal); D12.2 Benign neoplasm of ascending colon; D12.0 Benign neoplasm of cecum; K57.30 Diverticulosis of large intestine without perforation or abscess without bleeding; I48.91 Unspecified atrial fibrillation; J44.9 Chronic obstructive pulmonary disease, unspecified; G47.30 Sleep apnea, unspecified; Z79.01 Long term (current) use of anticoagulants
CPT/HCPCS: 45380; 45385; J7120